=== PATIENT | male | born 1990 | race Asian ===

== ENCOUNTER 2016-11-28 09:43 | Inpatient (IN) | payer OTHER ==
[2016-11-28 10:17] LABS: % IMMATURE GRANULYOCYTES 0.7 % (0.0-1.1); ABSOLUTE IMMATURE GRANULOCYTES 0.03 10^3/uL (0.00-0.10); ADD DIFF? NO; ADD MORPH? NO; ADD SCAN? NO; ATYPICAL LYMPHOCYTE FLAG 10 (0-99); FRAGMENT RBC FLAG 0 (0-99); HEMATOCRIT 44.9 % (40.0-51.0); HEMOGLOBIN 16.2 g/dL (13.7-17.5); LEFT SHIFT FLG 0 (0-99); LIPEMIA HEMOLYSIS FLAG 90 (0-99); MEAN CELL HEMOGLOBIN 31.1 pg (27.9-34.1); MEAN CELL HEMOGLOBIN CONCENTR. 36.1 g/dL (32.4-36.7); MEAN CELL VOLUME 86.2 fL (81.5-99.8); MEAN PLATELET VOLUME 9.4 fL (8.7-11.7); PLATELET CLUMPS FLAG 0 (0-99); PLATELET COUNT 212 10^3/uL (150-400); RED BLOOD CELL COUNT 5.21 10^6/uL (4.40-6.38); RED CELL DISTRIBUTION WIDTH 12.3 % (11.5-15.2)
[2016-11-28 10:29] LABS: ANION GAP 11 mEq/L (8-16); CALCIUM 9.3 mg/dL (8.5-10.4); CARBON DIOXIDE 24 mEq/l (22-31); CHLORIDE 107 mEq/L (97-110); CREATININE 0.9 mg/dL (0.7-1.3); ETHANOL SERUM < 10 mg/dL (0-10); GLOMERULAR FILTRATION RATE > 60; GLUCOSE 103 mg/dL (70-100); POTASSIUM 4.1 mEq/L (3.5-5.2); SODIUM 142 mEq/L (134-144)
--- NOTE | 2016-11-28 13:42 | EDPHY ---
H & P Stated Complaint: manic episode - Personal History Current Tetanus Diphtheria and Acellular Pertussis (TDAP): Yes - Medical/Surgical History Hx Asthma: No Hx Chronic Respiratory Disease: No Hx Diabetes: No Hx Cardiac Disease: No Hx Renal Disease: No Hx Cirrhosis: No Hx Alcoholism: No Hx HIV/AIDS: No Hx Splenectomy or Spleen Trauma: No Other PMH: bipolar - Social History Smoking Status: Never smoked Time Seen by Provider: 11/28/16 11:56 HPI/ROS: CHIEF COMPLAINT: Manic episode HISTORY OF PRESENT ILLNESS: The patient is a 26 year old male sent here by his therapist for possible manic episode. Patient was in [place] over the holidays where he 3 providers secondary to depression. he was told that he has anxiety , and depression by 1 provider and was told that he may have bipolar by another provider. He was placed on Prozac. When he [place] to the [place] earlier this month he was seen at [facility] and told to discontinue his Prozac. The patent saw another therapist here who put him on Zyprexa and Clonazepam. The patient believes those medications have been helping him. He saw his therapist today who thought the patient was having a manic episode. The patient states he feels "twitchy". He reports intermittent auditory and visual hallucinations. At times he feels paranoid as though something were following him. The patient was given medication to help with sleep and thinks he is getting enough sleep. He denies suicidal or homicidal ideation. REVIEW OF SYSTEMS: Aside from elements discussed in the HPI, a comprehensive 10-point review of systems was reviewed and is negative. PAST MEDICAL HISTORY: Depression, Anxiety, Bipolar SOCIAL HISTORY: Non smoker. No drug use. No alcohol use. [employer] student. VITAL SIGNS: Reviewed by me GENERAL: Well-developed, well-nourished, resting comfortably in no respiratory distress. HEENT: Atraumatic. Eyes: No icterus, no injection. Mouth: moist mucous membranes. No erythema or lesions. Neck: supple with no adenopathy. LUNGS: Clear to auscultation bilaterally, no wheezes, rhonchi or rales. CARDIAC: Regular rate and rhythm, no rubs, murmurs or gallops. ABDOMEN: Soft, nontender, nondistended, bowel sounds normal. BACK: No CVA tenderness. EXTREMITIES: No trauma. No edema. Range of motion is normal throughout. NEURO: Alert and oriented, grossly nonfocal. SKIN: Warm and dry, no rash. PSYCHIATRIC: Normal mentation, no agitation. Portions of this note were transcribed by a medical administrative assistant. I personally performed a history, physical exam, medical decision making, and confirmed accuracy of information the transcribed note. (Elizabeth Carr) Constitutional: Initial Vital Signs Temperature (C) 36.5 C 11/28/16 09:43 Heart Rate 90 11/28/16 09:43 Respiratory Rate 20 11/28/16 09:43 Blood Pressure 164/104 H 11/28/16 09:43 O2 Sat (%) 98 11/28/16 09:43 O2 Delivery Mode Room Air Allergies/Adverse Reactions: No Known Allergies Allergy (Unverified 11/28/16 09:57) Home Medications: Medication Instructions Recorded OLANZapine [ZyPREXA 2.5 mg (*)] 5 mg PO DAILY 11/28/16 clonazePAM [Klonopin (*)] 0.5 mg PO DAILY 11/28/16 Medical Decision Making ED Course/Re-evaluation: Care assumed at 3:[address] Carr. Patient is on a mental health hold plan for psychiatric evaluation and hospital admission. 1700: The patient will be transferred to [facility] for inpatient psychiatric hospital bed not available at this facility, in stable condition; accepting physician is Dr. Cheko Tipton. ( Donnell Peterson) 26-year-old male with a recent diagnosis of depression versus anxiety versus bipolar disorder. Patient mostly expresses DIP depressive symptomatology which had been occurring over the holidays, however, today's evaluation he has more manic type complaints with some anxiety, jitteriness, and pressured speech. Patient was medically cleared. His TSH was normal. Urine tox screen was negative. Patient was medically cleared to be evaluated by [facility]. Patient's care was assumed by Dr. Donnell Peterson at 3:15pm. He did ask for a 0.5 mg tablet of clonazepam which was provided. (Elizabeth Carr) Differential Diagnosis: Differential diagnosis of the patient's presenting complaint was considered including but not limited to functional and major depression, situational depression, Hyperthyroidism, medication side effect, drugs and alcohol abuse, bipolar disorder, schizophrenia, schizoaffective disorder. (Elizabeth Carr) - Data Points Laboratory Results: Laboratory Results 11/28/16 10:05 11/28/16 10:05 11/28/16 10:05 WBC 4.60 10^3/uL (3.80-9.50) RBC 5.21 10^6/uL (4.40-6.38) Hgb 16.2 g/dL (13.7-17.5) Hct 44.9 % (40.0-51.0) MCV 86.2 fL (81.5-99.8) MCH 31.1 pg (27.9-34.1) MCHC 36.1 g/dL (32.4-36.7) RDW 12.3 % (11.5-15.2) Plt Count 212 10^3/uL (150-400) MPV 9.4 fL (8.7-11.7) Neut % (Auto) 54.5 % (39.3-74.2) Lymph % (Auto) 29.8 % (15.0-45.0) Quay % (Auto) 10.0 % (4.5-13.0) Eos % (Auto) 4.1 % (0.6-7.6) Baso % (Auto) 0.9 % (0.3-1.7) Nucleat RBC Rel Count 0.0 % (0.0-0.2) Absolute Neuts (auto) 2.51 10^3/uL (1.70-6.50) Absolute Lymphs (auto) 1.37 10^3/uL (1.00-3.00) Absolute Monos (auto) 0.46 10^3/uL (0.30-0.80) Absolute Eos (auto) 0.19 10^3/uL (0.03-0.40) Absolute Basos (auto) 0.04 10^3/uL (0.02-0.10) Absolute Nucleated RBC 0.00 10^3/uL (0-0.01) Immature Gran % 0.7 % (0.0-1.1) Immature Gran # 0.03 10^3/uL (0.00-0.10) Sodium 142 mEq/L (134-144) Potassium 4.1 mEq/L (3.5-5.2) Chloride 107 mEq/L (97-110) Carbon Dioxide 24 mEq/l (22-31) Anion Gap 11 mEq/L (8-16) BUN 12 mg/dL (7-23) Creatinine 0.9 mg/dL (0.7-1.3) Estimated GFR > 60 Glucose 103 H mg/dL (70-100) Calcium 9.3 mg/dL (8.5-10.4) TSH 1.390 uIU/mL (0.465-4.680) Urine Opiates Screen NEGATIVE (NEGATIVE) Urine Barbiturates NEGATIVE (NEGATIVE) Ur Phencyclidine Scrn NEGATIVE (NEGATIVE) Ur Amphetamine Screen NEGATIVE (NEGATIVE) U Benzodiazepines Scrn NEGATIVE (NEGATIVE) Urine Cocaine Screen NEGATIVE (NEGATIVE) U Marijuana (THC) Screen NEGATIVE (NEGATIVE) Ethyl Alcohol < 10 mg/dL (0-10) Medications Given: Discontinued Medications Clonazepam (Klonopin) 0.25 mg PO EDNOW ONE Stop: 11/28/16 16:02 Last Admin: 11/28/16 16:11 Dose: 0.25 mg Departure - Departure Disposition: [facility] IP Clinical Impression: Bipolar disease, manic Condition: Good Referrals: Patient,NotPresent [Unknown] - As per Instructions Report Scribed for: Elizabeth Carr Report Scribed by: Daniela Moe Date of Report: 11/28/16 Time of Report: 13:42
[2016-11-28] MEDS ORDERED: clonazePAM 0.5 MG TAB PO ONE (16:01)
[2016-11-28] MEDS ORDERED: NICOTINE POLACRILEX 2 MG GUM B PRN (18:43)
[2016-11-28] MEDS ORDERED: ACETAMINOPHEN 325 MG TAB PO PRN (18:43)
[2016-11-28] MEDS ORDERED: MAG HYDROX/AL HYDROX/SIMETH 30 ML UDCUP PO PRN (18:43)
[2016-11-28] MEDS ORDERED: MAGNESIUM HYDROXIDE 30 ML UDCUP PO PRN (18:43)
[2016-11-28] MEDS ORDERED: OLANZapine DISINTEGR 10 MG TAB PO PRN (18:43)
[2016-11-28] MEDS: LORazepam 0.5 MG TAB PO PRN (19:12)
[2016-11-28] MEDS: OLANZapine DISINTEGR 10 MG TAB PO SCH (20:53)
[2016-11-29 06:27] VITALS: RESP 16
[2016-11-29] MEDS: lamoTRIgine 25 MG TAB PO SCH (09:29)
[2016-11-29] MEDS: LORazepam 0.5 MG TAB PO PRN ×2 (09:30→11:30)
--- NOTE | 2016-11-29 15:03 | BAPA ---
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 He was transferred from the [facility] after presenting there for a scheduled followup appointment and exhibiting manic symptoms. He reports several-year history of notable depressive episodes and even some possible hypomanic episodes but not having previously sought care. He states that this Hunter when he was home in [place] that he felt particularly depressed and sought treatment with 3 psychiatrists in [place]. He states that 1 psychiatrist thought he might be bipolar, another believed it was primarily anxiety, and the third believed that it was depression. The patient states that he went with recommendations of the person believing it was depression because he believed that this would be a more treatable condition and agreed to a trial of Prozac. The Prozac was started at 10 mg daily and he states that he initially tolerated it fine. When he returned to the [employer] [facility] [employer] approximately 3 weeks ago, he presented to the clinic for followup and saw the PA. The PA then increased the Prozac from 20 to 40 mg and he states that he began experiencing manic symptoms. He states he was having trouble sleeping, was experiencing increased thought production "faster than I could say them." He also noted voluminous speech and increased energy. He states that he had some changes in behavior including recently spending over 600 dollars on essentially frivolous items, including a new cell phone and various housewares. He was being followed by Dr. Sreedhar Mike at the [facility], who placed him on Zyprexa and then most recently Lamictal and stopped the Prozac. He was, however, apparently worsening and Dr. Mike referred him to the emergency department. Patient states that he was willing to come to the emergency department but believes that he may be improving and may not need to stay in the hospital. For this reason, he was placed on an M1 hold due to grave disability and admitted to behavioral health services inpatient unit. PAST PSYCHIATRIC HISTORY: Significant for the events as described above. He has had no previous medication treatments prior to the Prozac in October of 2016. He has had no previous psychiatric hospitalizations. He reports 3 episodes of notable depression in college but did not have medication treatment. He states that the manic symptoms would often follow the depressive episodes though they were not as severe as his current issues. He has no history of suicide attempts. ALLERGIES: No known medical allergies. CURRENT MEDICATIONS: Zyprexa 5 mg daily, Lamictal 25 mg daily, clonazepam 0.25 mg in the morning and 0.5 mg at night. PAST MEDICAL HISTORY: Noncontributory. No history of central nervous system disease. SOCIAL HISTORY: Patient was born and raised in [place]. He states that he was raised primarily by his maternal grandfather. He states that his parents were but his father was a business person and in the [place] tradition was out of the home for 16-18 hours a day. The patient states that his maternal grandmother was severely depressed and has been in bed for over 10 years. He states his mother also suffered from depression and that he was raised primarily by his maternal grandfather. He states that his mother "found synagogue" and this helped her get over her depression and she returned to a parenting role when the patient was 9. 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 He states that he has been having trouble with this due to his depression and was hoping that the medication would help him be more successful. He lives in an apartment off campus with a roommate with whom he states he has a good relationship. He states he has a good group of friends primarily through his contacts at the university though no current intimate relationships. SUBSTANCE ABUSE HISTORY: Patient states he drinks alcohol moderately and occasionally. Denies any marijuana, tobacco or other drug use. ADMISSION LABORATORY: CBC is normal. Serum chemistries are normal. TSH is normal. Urine drug screen is negative for all substances. Alcohol is less than detectable. MENTAL STATUS EXAMINATION: Reveals a well groomed, casually but appropriately dressed male. He appears somewhat nervous and displays at least a moderate level of psychomotor agitation, fidgeting in his seat and frequently making nervous gestures with his hands to adjust his glasses or his shirt. He participates actively in the interview maintaining good eye contact and normal social interactions. His affect is somewhat constricted and anxious, though appropriate and stable. His mood is described as "a little messed up." His thought process is linear and goal directed. His thought content reveals no evidence of psychosis. He is alert and oriented to person, place, time, and situation and his sensorium is clear. He denies any thoughts of suicide, homicide or violence. His intellect appears to be above average as evidenced by his academic history, fund of knowledge and vocabulary. He is completely fluent in Israeli and there is no difficulties in communication or understanding. His insight and judgment appear to be good. IMPRESSION: Bipolar type 1, most recent episode mixed, severe, without psychosis, academic stress, marginal supports. The patient is a pleasant 26-year-old male who presents at this time with evidence of mixed katlin. He has had at least 3 index episodes of major depression in the past with some hypomania and it appears that the treatment with fluoxetine may have put him over the edge into more rudy katlin. Despite this, he retains a mixed nature with a depressed mood. Dr. Mike has intervened appropriately and started him on Zyprexa and Lamictal, which we have continued. I will increase the Zyprexa initially to 10 mg and consider 15 prior to returning to the outpatient setting. Lamictal will be continued on a standard titration. I left a message for Dr. Mike and will collaborate with him prior to considering discharge. Estimated length of stay is 3-5 days. /[id number]/MODL MTDD
[2016-11-29] MEDS: OLANZapine DISINTEGR 10 MG TAB PO SCH (18:56)
--- NOTE | 2016-11-30 05:01 | BCON ---
[f rep st] BEHAVIORAL HEALTH CONSULTATION INTERNAL MEDICINE CONSULTATION. DATE OF CONSULTATION: 11/29/2016 REFERRING PHYSICIAN: Cheko Tipton MD REASON FOR CONSULTATION: Medical clearance for inpatient behavioral health stay. HISTORY OF PRESENT ILLNESS: Mr. Summers had a manic episode, likely triggered by prescription of Prozac, while he was in [place] over the Holiday. He was seen at the [facility] on campus. Prozac was discontinued and he was begun on olanzapine and clonazepam, and then on lamotrigine; however, he was continuing to be manic, and so was sent to the emergency department. There , he was placed on an M1 hold and admitted for further psychiatric care. He currently is without any medical complaints. PAST MEDICAL HISTORY: 1. Depression and recent diagnosis of bipolar disorder. 2. Appendicitis. PAST SURGICAL HISTORY: Appendectomy. MEDICATIONS: 1. Lamotrigine. 2. Clonazepam. 3. Olanzapine. ALLERGIES: There are no known drug allergies. 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 He is a nonsmoker. He uses alcohol occasionally. He does not use marijuana or other substances of abuse. He lives with a roommate. FAMILY HISTORY: There is a history of depression in his mother and in his grandmother. REVIEW OF SYSTEMS: He denies fevers, chills, weight gain or weight loss, cough , dyspnea, chest pain, palpitations, nausea, vomiting, constipation, diarrhea, and otherwise a 10-point review of systems is negative. PHYSICAL EXAM: VITALS: Blood pressure at 6 o'clock this morning was 129/84, heart rate was 71, respiratory rate was 16, oxygen saturation was 96% on room air, temperature is 36.6 degrees centigrade. His weight is recorded as 104 kg for a body mass index of 30.2; however, he does not appear to be obese. Of note , his blood pressure was 164/104 when he was first assessed in the emergency department yesterday morning. GENERAL: This is a well-nourished, well- developed, overweight-appearing man, who appears his chronologic age, cooperative, and in no acute distress. HEENT: Extraocular movements are intact. Pupils are equal, round, and reactive to light, and accommodation. Mucous membranes are moist. Dentition is in good condition. He has a somewhat crowded airway with Mallampati class 3. NECK: Supple. HEART: Regular rate and rhythm with no murmurs, rubs, or gallops. LUNGS: Clear to auscultation bilaterally. ABDOMEN: Soft, nontender, nondistended with normoactive bowel sounds. EXTREMITIES: There is no cyanosis, clubbing, or edema. NEUROLOGIC: He is alert and oriented x3. Cranial nerves 2-12 are grossly intact. There is no focal weakness. Sensation is intact to light touch. LABORATORY STUDIES: Drawn in the emergency department. CBC was entirely within normal limits. Serum chemistry revealed a slightly elevated glucose at 103, but this was likely nonfasting. Otherwise, renal function and electrolytes were within normal limits. TSH was normal at 1.39. Serum toxicology was negative for ethyl alcohol and urine toxicology was negative for any substances of abuse. ASSESSMENT AND RECOMMENDATIONS: 1. Mental health condition. Pending further evaluation and management per Psychiatry and the mental health team. 2. Overweight. Question whether he is truly obese. Consider repeating his height and weight to verify. Would exercise some caution regarding medications which could further weight gain. He could be counseled about exercise and diet. Psychosocial stabilization is the first priority for him at present. His elevated blood pressures are concerning, given his overweight status; however, these issues can be followed by his primary care physician after his discharge. I see no medical contraindications to Mr. Summers's continued stay on the inpatient behavioral health unit, or to any psychiatric medications or procedures. Thank you very much for including me in the care of Mr. Summers, and please do not hesitate to contact me or the hospitalist service should there be need for further medical evaluation. /[id number]/MODL MTDD
[2016-11-30] MEDS: lamoTRIgine 25 MG TAB PO SCH (07:45)
[2016-11-30] MEDS: LORazepam 0.5 MG TAB PO PRN ×3 (07:45→19:51)
[2016-11-30] MEDS ORDERED: FLU VACC QS 2016-17(3-64YR)/PF 0.5 ML SYR (FLUARIX QUAD) IM ONE (11:23)
--- NOTE | 2016-11-30 13:33 | SOAPPROG ---
[facility] Progress Note Assessment/Plan: Assessment: Plan: 11/30/16 13:33 Improving. CCM. Plan is to continue current management. If all is well tomorrow, will d/c pt at the expiration of his hold. he will return to normal duties on Monday and see Dr. Mike on Monday. Subjective: Pt seen, discussed with staff. Reports feeling "a lot better" today. I spoke with pt alone and with Dr. Mike via telephone conference. He is in agreement with current plan. He would prefer using Klonopin to Ativan. Pt is more organized. Able to participate in groups well. Mood is brighter, less anxious. Staff notes continued pressured speech and accelerated thoughts at times. Compliant with meds. Slept 10 hours last night. Objective: Vital Signs Temp Pulse Resp BP Pulse Ox 36.6 C 76 16 135/81 H 95 11/30/16 06:00 11/30/16 06:00 11/30/16 06:00 11/30/16 06:00 11/30/16 06:00 - Time Spent With Patient Time Spent With Patient: 25" - Pending Discharge Pending Discharge Within 24 Hours: Yes Pending Discharge Date: 12/01/16 Pending Discharge Time: 11:00 ICD10 Worksheet Patient Problems: Problems Problem Status Diagnosed Bipolar disease, manic Acute
[2016-11-30] MEDS: OLANZapine DISINTEGR 10 MG TAB PO SCH (19:51)
[2016-12-01 06:21] VITALS: BP 130/79; PULSE 114; TEMP 98; O2SAT 97
[2016-12-01] MEDS: lamoTRIgine 25 MG TAB PO SCH (08:24)
[2016-12-01] MEDS: LORazepam 0.5 MG TAB PO PRN (08:24)
== END 2016-12-01 10:35 | disposition home or self-care (01) | DRG 885 ==
LOC: BBEH 18:00
PROVIDERS: ADMIT Psychiatry & Neurology Psychiatry; ATTEND Psychiatry & Neurology Psychiatry
DX: F31.63 Bipolar disorder, current episode mixed, severe, without psychotic features (principal); E66.3 Overweight
CPT/HCPCS: 80305; G0008; G0480

== ENCOUNTER 2017-03-08 10:42 | Inpatient (IN) | payer OTHER ==
--- NOTE | 2017-03-08 11:00 | EDPHY ---
HPI/HX/ROS/PE/MDM Narrative: CHIEF COMPLAINT: Overdose HPI: The patient is a 26-year-old male brought in for overdose. The patient has a history of bipolar disorder. He admits to taking 15 tablets of 0.5mg of Clonazepam 30 minutes prior to arrival. The patient states he took the medication "as a bet with myself". If he in 1 hour then he won, if not he lost. The patient did not take his Lamictal and Wabeno this morning. The patient denies chest pain, shortness of breath, or abdominal pain. REVIEW OF SYSTEMS: Aside from elements discussed in the HPI, a comprehensive 10-point review of systems was reviewed and is negative. PMH: Bipolar with manic tendencies. 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 PHYSICAL EXAM: General: Patient is alert, in no acute distress. ENT: Eyes are normal to inspection. ENT inspection normal. Neck: Normal inspection. Full range of motion. Respiratory: No respiratory distress. Breath sounds normal bilaterally. Cardiovascular: Regular rate and rhythm. Strong peripheral pulses. Abdomen: The abdomen is nontender to palpation. There are no peritoneal signs. There are normal bowel sounds. Back: Normal to inspection. No tenderness to palpation. Skin: Normal color. No rash. Warm and dry. Extremities: Normal appearance. Full range of motion. Neuro: Oriented x3. Normal motor function. Normal sensory function. ED Course: The patient presents with intentional overdose. He took 15 tablets of 0.5mg Clonazepam 30 minutes prior to arrival. Patient took the medication as a bet with himself. He states he wanted the medication to kill him so he would win the bet. The patient has a history of bipolar disorder with manic tendencies. He did not take his Lamictal or Wabeno this morning. I placed the patient on a detainer. I ordered CBC, BMP, and drug screen. EKG was ordered and interpreted by myself. Please see Edifilm system for official reading. Sinus rhythm. 2:00 p.m.: I reevaluated the patient. He is sleeping comfortably. Vital signs are normal. Patient will be admitted to [address] [place] [address] after 3p.m. - Data Points Laboratory Results: Laboratory Results 03/08/17 10:56 03/08/17 10:56 03/08/17 03/08/17 03/08/17 13:00 10:56 10:56 WBC 4.90 10^3/uL 10^3/uL (3.80-9.50) RBC 5.48 10^6/uL 10^6/uL (4.40-6.38) Hgb 16.6 g/dL g/dL (13.7-17.5) Hct 47.1 % % (40.0-51.0) MCV 85.9 fL fL (81.5-99.8) MCH 30.3 pg pg (27.9-34.1) MCHC 35.2 g/dL g/dL (32.4-36.7) RDW 12.3 % % (11.5-15.2) Plt Count 223 10^3/uL 10^3/uL (150-400) MPV 9.2 fL fL (8.7-11.7) Neut % (Auto) 67.5 % % (39.3-74.2) Lymph % (Auto) 21.2 % % (15.0-45.0) Dupage % (Auto) 7.6 % % (4.5-13.0) Eos % (Auto) 2.7 % % (0.6-7.6) Baso % (Auto) 0.6 % % (0.3-1.7) Nucleat RBC Rel Count 0.0 % % (0.0-0.2) Absolute Neuts (auto) 3.31 10^3/uL 10^3/uL (1.70-6.50) Absolute Lymphs (auto) 1.04 10^3/uL 10^3/uL (1.00-3.00) Absolute Monos (auto) 0.37 10^3/uL 10^3/uL (0.30-0.80) Absolute Eos (auto) 0.13 10^3/uL 10^3/uL (0.03-0.40) Absolute Basos (auto) 0.03 10^3/uL 10^3/uL (0.02-0.10) Absolute Nucleated RBC 0.00 10^3/uL 10^3/uL (0-0.01) Immature Gran % 0.4 % % (0.0-1.1) Immature Gran # 0.02 10^3/uL 10^3/uL (0.00-0.10) Sodium 143 mEq/L mEq/L (134-144) Potassium 4.2 mEq/L mEq/L (3.5-5.2) Chloride 110 mEq/L mEq/L (97-110) Carbon Dioxide 21 mEq/l L mEq/l (22-31) Anion Gap 12 mEq/L mEq/L (8-16) BUN 12 mg/dL mg/dL (7-23) Creatinine 0.9 mg/dL mg/dL (0.7-1.3) Estimated GFR > 60 Glucose 117 mg/dL H mg/dL (70-100) Calcium 9.7 mg/dL mg/dL (8.5-10.4) Urine Opiates Screen NEGATIVE (NEGATIVE) Urine Barbiturates NEGATIVE (NEGATIVE) Ur Phencyclidine Scrn NEGATIVE (NEGATIVE) Ur Amphetamine Screen NEGATIVE (NEGATIVE) U Benzodiazepines Scrn NEGATIVE (NEGATIVE) Urine Cocaine Screen NEGATIVE (NEGATIVE) U Marijuana (THC) Screen NEGATIVE (NEGATIVE) Ethyl Alcohol < 10 mg/dL mg/dL (0-10) General Time Seen by Provider: 03/08/17 10:49 Initial Vital Signs: Initial Vital Signs Temperature (C) 36.6 C 03/08/17 10:45 Heart Rate 98 03/08/17 10:45 Respiratory Rate 20 03/08/17 10:45 Blood Pressure 135/74 H 03/08/17 10:45 O2 Sat (%) 94 03/08/17 10:45 O2 Delivery Mode Nasal Cannula O2 (L/minute) 2 Allergies/Adverse Reactions: No Known Allergies Allergy (Verified 03/08/17 10:43) Home Medications: Medication Instructions Recorded Brexpiprazole [Rexulti 1 MG (*)] 1 mg PO HS 03/08/17 Wabeno Carbonate [Wabeno 300 mg PO DAILY 03/08/17 Carbonate Cap 300 mg (*)] Wabeno Carbonate [Wabeno 600 mg PO DAILY@20 03/08/17 Carbonate Cap 300 mg (*)] OLANZapine [Zyprexa] 15 mg PO HS 03/08/17 clonazePAM [Klonopin (*)] 0.5 mg PO DAILY PRN 03/08/17 lamoTRIgine [Lamictal] 150 mg PO DAILY 03/08/17 Departure - Departure Disposition: [facility] IP Clinical Impression: Suicidal ideation Overdose Qualifiers: Encounter type: initial encounter Injury intent: intentional self-harm Qualified Code(s): T50.902A - Poisoning by unspecified drugs, medicaments and biological substances, intentional self-harm, initial encounter Condition: Good Referrals: NONE *PRIMARY CARE P,. [Primary Care Provider] - As per Instructions Report Scribed for: Javan Lopes Report Scribed by: Daniela Moe Date of Report: 03/08/17 Time of Report: 11:05 Physician Review and Approval Statement: Portions of this note were transcribed by a medical interpreter. I personally performed the history, physical exam, and medical decision-making; and confirmed the accuracy of the information in the transcribed note.
--- NOTE | 2017-03-08 11:00 | CPEKG ---
Heart Rate: 94 RR Interval: 638 P-R Interval: 164 QRSD Interval: 98 QT Interval: 360 QTC Interval: 451 P Steptoe: 68 QRS Steptoe: 57 T Wave Steptoe: 9 EKG Severity - NORMAL ECG - EKG Impression: SINUS RHYTHM Electronically Signed By: Javan Lopes 08-Mar-2017 15:09:35
[2017-03-08 11:06] LABS: % IMMATURE GRANULYOCYTES 0.4 % (0.0-1.1); ABSOLUTE IMMATURE GRANULOCYTES 0.02 10^3/uL (0.00-0.10); ADD DIFF? NO; ADD MORPH? NO; ADD SCAN? NO; ATYPICAL LYMPHOCYTE FLAG 0 (0-99); FRAGMENT RBC FLAG 0 (0-99); HEMATOCRIT 47.1 % (40.0-51.0); HEMOGLOBIN 16.6 g/dL (13.7-17.5); LEFT SHIFT FLG 0 (0-99); LIPEMIA HEMOLYSIS FLAG 90 (0-99); MEAN CELL HEMOGLOBIN 30.3 pg (27.9-34.1); MEAN CELL HEMOGLOBIN CONCENTR. 35.2 g/dL (32.4-36.7); MEAN CELL VOLUME 85.9 fL (81.5-99.8); MEAN PLATELET VOLUME 9.2 fL (8.7-11.7); PLATELET CLUMPS FLAG 10 (0-99); PLATELET COUNT 223 10^3/uL (150-400); RED BLOOD CELL COUNT 5.48 10^6/uL (4.40-6.38); RED CELL DISTRIBUTION WIDTH 12.3 % (11.5-15.2)
[2017-03-08 11:22] LABS: ANION GAP 12 mEq/L (8-16); CALCIUM 9.7 mg/dL (8.5-10.4); CARBON DIOXIDE 21 mEq/l (22-31); CHLORIDE 110 mEq/L (97-110); CREATININE 0.9 mg/dL (0.7-1.3); ETHANOL SERUM < 10 mg/dL (0-10); GLOMERULAR FILTRATION RATE > 60; GLUCOSE 117 mg/dL (70-100); POTASSIUM 4.2 mEq/L (3.5-5.2); SODIUM 143 mEq/L (134-144)
[2017-03-08] MEDS ORDERED: ACETAMINOPHEN 325 MG TAB PO PRN (18:32)
[2017-03-08] MEDS ORDERED: LORazepam 0.5 MG TAB PO PRN (18:32)
[2017-03-08] MEDS ORDERED: MAG HYDROX/AL HYDROX/SIMETH 30 ML UDCUP PO PRN (18:33)
[2017-03-08] MEDS ORDERED: MAGNESIUM HYDROXIDE 30 ML UDCUP PO PRN (18:33)
[2017-03-08] MEDS ORDERED: OLANZapine 5 MG TAB PO SCH (21:00)
[2017-03-08] MEDS: LITHIUM CARBONATE 300 MG TAB PO SCH (21:14)
[2017-03-09] MEDS: lamoTRIgine 100 MG TAB PO SCH (08:15)
[2017-03-09] MEDS: LITHIUM CARBONATE 300 MG TAB PO SCH ×2 (08:15→20:29)
--- NOTE | 2017-03-09 16:27 | BCON ---
[f rep st] BEHAVIORAL HEALTH CONSULTATION INTERNAL MEDICINE CONSULTATION DATE OF CONSULTATION: 03/09/2017 REFERRING PHYSICIAN: Nadeen Eaton MD REASON FOR REFERRAL: Medical clearance for inpatient behavioral health stay. HISTORY OF PRESENT ILLNESS: The patient presented yesterday to the [facility] emergency department, having reportedly taken fifteen 0.5 mg clonazepam tablets. He was placed on oxygen and evaluated and found to be stable. He was evaluated by the mental health team and admitted for further psychiatric care. Currently, he complains of feeling fatigued. Otherwise, he is without any acute medical complaints. PAST MEDICAL HISTORY: 1. Bipolar disorder. 2. History of appendicitis. PAST SURGICAL HISTORY: History of appendectomy. MEDICATIONS: Prior to admission, he was prescribed: 1. [place] 300 mg p.o. daily in the morning and 600 mg p.o. daily in the evening. 2. Brexpiprazole 1 mg p.o. q.h.s. 3. Lamotrigine 150 mg p.o. daily. 4. Clonazepam 0.5 mg p.o. daily p.r.n. 5. Olanzapine 15 mg p.o. q.h.s. ALLERGIES: There are no known drug allergies. 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 He lives in an apartment with a roommate. He is a nonsmoker and nondrinker. FAMILY HISTORY: Noncontributory. REVIEW OF SYSTEMS: Other than fatigue, a 10-point review of systems was conducted and was negative. PHYSICAL EXAM: VITAL SIGNS: Blood pressure is 118/78, heart rate is 70, respiratory rate is 14, oxygen saturation is 95% on room air. Temperature is 36.4 degrees centigrade. His weight is 105 kg for a body mass index of 30.5. GENERAL: This is a large man, does not appear obese, napping in the afternoon in bed, easily awakened, cooperative, and in no acute distress. HEENT: Extraocular movements are intact. Pupils are equal, round, and reactive to light. Mucous membranes are moist. Dentition is in good condition. He has non crowded airway. There is no posterior oropharyngeal mucus. There are no oropharyngeal mucosal lesions noted. NECK: Supple. HEART: There is a regular rate and rhythm with no murmurs, rubs, or gallops. LUNGS: Clear to auscultation bilaterally. ABDOMEN: Soft, nontender, nondistended with normoactive bowel sounds. EXTREMITIES: There is no cyanosis, clubbing, or edema. NEUROLOGIC: He is alert and oriented x3. Cranial nerves 2-12 are grossly intact. There is no focal weakness. Sensation is intact to light touch. Gait is within normal limits. Romberg exam is positive with loss of balance when he closes his eyes. LABORATORY STUDIES: Drawn in the emergency department. CBC was entirely within normal limits. Serum chemistry revealed a low carbon dioxide at 21, a high glucose at 117, though this was likely not fasting. Otherwise, renal function and electrolytes were within the normal limits. Toxicology screen in the serum was negative for ethyl alcohol, and the urine was negative for any substances of abuse, including negative for benzodiazepines. ASSESSMENT AND RECOMMENDATIONS: 1. Mental health issues, pending further evaluation and management per Psychiatry and the mental health team. 2. Reported benzodiazepine overdose discussed with the lab. It is possible that the [facility] urine toxicology screen does not detect 7 amino clonazepam, which is the metabolite found in the urine. The clonazepam ingestion could be confirmed by a send-out blood test. I leave this to the discretion of Psychiatry whether this is worthwhile. His physical exam, in terms of effects of benzodiazepines, is overall within normal limits, though he does have a positive Romberg, which would not be expected in an otherwise healthy 26-year-old, so this could be due to balance impairment from the benzodiazepine. I see no medical contraindications to the patient's continued stay on the inpatient behavioral health unit. Thank you very much for including me in the care of this patient, and please do not hesitate to contact me or the hospitalist service should there be need for further medical evaluation. /[id number]/MODL MTDD
--- NOTE | 2017-03-09 16:36 | BAPA ---
[f rep st] ADMISSION PSYCHIATRIC ASSESSMENT DATE OF SERVICE: 03/09/2017 CHIEF COMPLAINT: "I was feeling impulsive and took a whole bottle of Klonopin." HISTORY OF PRESENT ILLNESS: Patient is a 26-year-old Khmer male who presented to the emergency dep artment after his roommate called the police. He apparently had been in some form of a rather odd i nteraction with the roommate, stating that he essentially was "going to bet him I could take these p ills." He then proceeded to take what was left in the bottle of clonazepam, which he believed to be fifteen 0.5 mg tablets. The patient states that he had been feeling depressed over the last month and that this was increasing, but he was having frequent thoughts of self-harm and suicide. He stat es, however, that he did not necessarily plan this act, though does admit to having written a number of letters to his parents "to say goodbye." He reports that his roommate became concerned after he actually took the pills and did a shot of vodka "because that would make it more lethal." He came quietly to the emergency department with the squad after the police were called. In the ER, he cont inues to endorse this somewhat odd story, and then today tells me that he has been having the persis tent thoughts of suicide. He also states that he has been feeling more depressed, with a pervasivel y depressed mood and is having trouble sleeping. He feels agitated quite a bit and has had trouble sitting still. 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 He states he feels agitated a lot, rest less, and struggles to sit still while studying. He complains of poor attention and concentration, racing thoughts, and impulsivity. He states that his mood has been lower than usual, and he has had thoughts of worthlessness, "Like I was letting people down, especially in my research." He states he has missed several deadlines with his PhD project, and he feels that he is letting down his co-in vestigators. He has been socializing minimally outside of his roommate and states he feels isolated and lonely. PAST PSYCHIATRIC HISTORY: Significant for some previous treatment in [place]. He had been given anti depressants by a primary care physician when he was home in [place], including Prozac in October 2016 . He states that he then had some manic symptoms and discontinued the Prozac. He states at least 4 previous episodes of depression prior to now and was hospitalized at this facility from 11/28/2016 to 12/01/2016 due to a mixed katlin. He denies any previous suicide attempts, though states he has h ad persistent thoughts. He has been followed by Dr. Sreedhar Mike at the [facility] at the [employer]. His meds have been relatively stable, though they are apparently switching over from Zyprexa to Rexulti. The patient notes no side effects from his medicines, though states t hat he is not sure they are effective. ALLERGIES: No known medical allergies. CURRENT MEDICATIONS: Rexulti 1 mg h.s., Lamictal 150 mg daily, lithium carbonate 300 mg daily and 6 00 mg h.s., and Zyprexa 15 mg h.s. PAST MEDICAL HISTORY: Unremarkable. SOCIAL HISTORY: Patient is from [facility]. He is currently living in an apartment with 1 roommate. 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 He has been collecting some data and is supposed to be compiling this for publication, though states he has been behind on this. His suppo rts are his family in [place], though he does not communicate with them if he is feeling badly because he does not want to be ashamed. He notes no other stresses at this time. SUBSTANCE ABUSE HISTORY: Patient states that he does drink occasionally, though this has been less recently. He denies any other marijuana or drug use. ADMISSION LABORATORY: CBC is normal. Serum chemistries show a nonfasting glucose of 117, otherwise normal. Urine drug screen is negative for all substances, and alcohol is less than detectable. MENTAL STATUS EXAMINATION: Reveals an adequately groomed, healthy-appearing male. He is plea faith and cooperative, though does demonstrate at least a moderate level of psychomotor retardation. His affect is blunted, stable and appropriate. His mood is described as "pretty good now." His th ought process is linear and goal directed. His thought content reveals no evidence of psychosis, th ough there is some notable delay in answering some questions. He does not seem to be attending to i nternal stimuli and does not endorse auditory hallucinations. He is alert and oriented to person, p lace, time, and situation. There is no evidence of delirium or intoxication. His intellect appears to be above average as evidenced by his academic history, fund of knowledge, and vocabulary. He do es not currently endorse thoughts of suicide, stating "that has gone away." His insight and judgmen t appear to be fair. IMPRESSION: Bipolar type 1 disorder, most recent episode depressed, moderate to severe, without psy chosis. Academic stress, marginal supports, chronic illness. The patient is a pleasant 26-year-old male who presents at this time due to recurrent suicidal ideation in the setting of depression or mixed episode. He seemed pretty serious actually about ta tatiana these pills and mixing with alcohol, and his affect is somewhat incongruent for this as he does not seem to have an emotional response, positive or negative, though did make numerous statements i n the emergency department that it would be a failure if he lived. He also wrote notes to his maurilio ts, which is obviously concerning as well. He wants to leave the hospital to return to his apartmen t where he states he is more comfortable, and to return to his academic duties. I reviewed with him my impressions of his current regimen, and he is agreeable to increasing the Rexulti to 2 mg and de creasing the Zyprexa from 15 to 10 mg. I have a message in for Dr. Mike and hope to hear from him s oon in regard to any guidance he may have pharmacologically or otherwise. Estimated length of stay is 3-5 days. /[id number]/MODL
[2017-03-09] MEDS: BREXPIPRAZOLE 2 MG TAB PO SCH (20:29)
[2017-03-09] MEDS: OLANZapine 10 MG TAB PO SCH (20:29)
[2017-03-09] MEDS ORDERED: BREXPIPRAZOLE 1 MG TAB PO SCH (21:00)
[2017-03-09] MEDS ORDERED: OLANZapine 10 MG TAB PO SCH (21:00)
[2017-03-10] MEDS: LITHIUM CARBONATE 300 MG TAB PO SCH ×2 (08:59→20:25)
[2017-03-10] MEDS: lamoTRIgine 100 MG TAB PO SCH (08:59)
--- NOTE | 2017-03-10 12:57 | SOAPPROG ---
SOAP Progress Note Assessment/Plan: Assessment: Plan: 03/10/17 12:57 Appears brighter today. Insight remains poor. Difficult to assess overall lethality at this point. Hope to hear from Dr. Mike today. Subjective: Pt seen, discussed with staff. Reports feeling "a lot better." States he wants to leave tomorrow. Remains concrete, fairly superficial. States he is no longer suicidal but admits to having persistent thoughts of suicide for several weeks to a month prior to recent OD. I left a message for Dr. Mike. Tolerating increase in Rexulti well. Objective: Vital Signs Temp Pulse Resp BP Pulse Ox 36.6 C 90 14 114/74 94 03/10/17 06:00 03/10/17 06:00 03/10/17 06:00 03/10/17 06:00 03/10/17 06:00 MSE: Calm, coop. Affect is brighter, stable. Mood is "better." TP linear. TC reveals no psychosis. Denies current SI. - Time Spent With Patient Time Spent With Patient: 25" ICD10 Worksheet Patient Problems: Problems Problem Status Onset Overdose Acute Suicidal ideation Acute Bipolar disease, manic Acute
[2017-03-10] MEDS: BREXPIPRAZOLE 2 MG TAB PO SCH (20:25)
[2017-03-10] MEDS: OLANZapine 10 MG TAB PO SCH (20:25)
[2017-03-11] MEDS: LITHIUM CARBONATE 300 MG TAB PO SCH ×2 (08:10→20:33)
[2017-03-11] MEDS: lamoTRIgine 100 MG TAB PO SCH ×2 (08:10→10:10)
[2017-03-11] MEDS ORDERED: OLANZapine DISINTEGR 10 MG TAB PO PRN (08:43)
--- NOTE | 2017-03-11 12:18 | SOAPPROG ---
SOAP Progress Note Assessment/Plan: Assessment: Plan: 03/10/17 12:57 Appears brighter today. Insight remains poor. Difficult to assess overall lethality at this point. Hope to hear from Dr. Mike today. 03/11/17 12:17 Improved overall. Will institute med changes per discussion with Dr. Mike and monitor. Will reassess tomorrow in regards to appropriateness for d/c. Dr. Mike can see him on Monday when he returns from vacation. Subjective: Pt seen, discussed with staff. Reports feeling "OK, but sleepy" today. Sleeping in his room when I enter at 1130. Medication changes ordered this morning. I reviewed with him the plan from Dr. Mike including staying for at least one more day due to med changes. He is agreeable to this as well as converting to a voluntary status. Objective: Vital Signs Temp Pulse Resp BP Pulse Ox 37.1 C 79 12 116/73 95 03/11/17 06:00 03/11/17 06:00 03/11/17 06:00 03/11/17 06:00 03/11/17 06:00 MSE: Calm, coop. Does appear sleepy. Affect is blunted, stable. Mood is "OK. " TP linear. TC reveals no overt psychosis. Denies current SI. - Time Spent With Patient Time Spent With Patient: 15" ICD10 Worksheet Patient Problems: Problems Problem Status Onset Overdose Acute Suicidal ideation Acute Bipolar disease, manic Acute
[2017-03-11] MEDS ORDERED: metFORMIN HCL 500 MG TAB PO SCH (18:00)
[2017-03-11] MEDS: OLANZapine DISINTEGR 10 MG TAB PO SCH (20:30)
[2017-03-11] MEDS: BREXPIPRAZOLE 3 MG TAB PO SCH (20:33)
[2017-03-11] MEDS: BREXPIPRAZOLE 2 MG TAB PO SCH (20:33)
[2017-03-11] MEDS ORDERED: SERTRALINE HCL 50 MG TAB PO SCH (21:00)
[2017-03-11] MEDS ORDERED: OLANZapine DISINTEGR 10 MG TAB PO SCH ×2 (21:00)
[2017-03-12 06:20] VITALS: TEMP 97.9
[2017-03-12] MEDS: lamoTRIgine 100 MG TAB PO SCH (08:24)
[2017-03-12] MEDS: LITHIUM CARBONATE 300 MG TAB PO SCH ×2 (08:24→18:05)
[2017-03-12] MEDS: BREXPIPRAZOLE 2 MG TAB PO SCH (20:18)
[2017-03-12] MEDS: BREXPIPRAZOLE 3 MG TAB PO SCH (20:18)
[2017-03-12] MEDS: OLANZapine DISINTEGR 10 MG TAB PO SCH (20:19)
--- NOTE | 2017-03-12 22:07 | SOAPPROG ---
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 Plan: 03/13/17 01:04 Per staff, slept 10.5 hrs. attending groups. Staff report his scoring on BDI worse than upon admission, including noting future is hopeless. (initial BDI did not seem filled out in a clear mental state, however, given stray ahumada and circles out of place) On interview, reports "feeling better...I'm not feeling that impulsive right now ". Feels "group therapies" helped while here. Talked of his SI x 1mo with depression leading up to impulsive OD, but adds that he had been researching a few weeks earlier online "the LD50 of Klonopin" but couldn't find it, altho noted many posts on not using Klon w/EtOH, so he figured he would just take all the pills and add EtOH. If he had found the LD50, "I would've just doubled the dose". Talked of recent change of Dx to BMD in 11/2016 after became manic. This is still a difficult Dx for him, he admits. "but I just found a book on Bipolar wedged under my bed and started reading it". States his feeling hopeless abt future noted on BDI related to having this BMD dx which he still isn't happy about. Discussed this and mgmt. States graduate work has been hampered by his depr over past few months. Initially denied any SI since admission, then admitted to having had +SI yesterday evening to hang self, which lasted for about 1 hr. Thoughts followed by "this hospital is designed nicely to prevent that...even the door handles are weird...maybe a chair." Attributes SI thoughts to anxiety/stress around missing TA duties and meetings while here, also unopened emails, and thinking about how he has fallen behind on assigned tasks/deadlines suggested by his advisor for his graduate work. States he did NOT tell anyone yesterday, but then did talk about it in group but was redirected. States at home when he had SI, eventually they would go away by him falling asleep or getting distracted. States prior to admission, SI came and went almost daily, but had not had any here until admitted having SI last PM. 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 MSE: cooperative, engaged, good eye contact, nml speech, mood "feeling better", affect constricted and admits feels like crying, sounded nasally congested but when asked about this, reports bc he "feels like crying". Has experienced this feeling episodically over the past few mo. also notes opposite where friends tell him "you're not as witty as before" despite laughing at things not funny "like when I was taking the pills (overdose)". thoughts with goal-directed responses, denied AH/VH although admits hx of AH prior to Zyprexa, and some AH "mumbling" prior to admission but not since. denied IOR or any other psychotic symptoms. denied current SI or any thoughts of harming others. i/j- seem intact. cognition intact. Reports no med s/e, although still having some AM sedation. PLAN: -continue current meds. still with some AM sedation but less with decr zyprexa. Perhaps Lamictal change to hs could decr AM sedation? may need continued uptitration for bipolar depr mood -arrange f/u with therapist to incr MH contact/supports after d/c. would also benefit from groups, also DBT as outpatient. -has outpt psychiatrist appt 03/15 -check Li+ level in AM -staff supervised use of his computer to check emails today which he admits would decr his anxiety, which had led to SI last pm -agreed to stay until tomorrow- to ck labs, allow for another day following med changes, and skin care therapist would like to ensure pt has a f/u appt arranged with a therapist at d/c not just psychiatrist. chronic risk of self harm w/hx of impulsivity but expressing motivation for tx -needs cont'd education about and support around BMD Dx and ability to lead nml life with treatment/mgmt of illness, this dx is still difficult for him. Objective: Vital Signs Temp Pulse Resp BP Pulse Ox 36.6 C 78 12 107/71 94 03/12/17 06:00 03/12/17 06:00 03/12/17 06:00 03/12/17 06:00 03/12/17 06:00 - Time Spent With Patient Time Spent With Patient: 50 min - Pending Discharge Pending Discharge Within 24 Hours: Yes Pending Discharge Within 48 Hours: No Pending Discharge Date: 03/14/17 Pending Discharge Time: 11:00 ICD10 Worksheet Patient Problems: Problems Problem Status Onset Overdose Acute Suicidal ideation Acute Bipolar disease, manic Acute
[2017-03-13 06:21] VITALS: BP 107/63; PULSE 69; RESP 14; O2SAT 96
[2017-03-13] MEDS: lamoTRIgine 100 MG TAB PO SCH (08:29)
[2017-03-13] MEDS: LITHIUM CARBONATE 300 MG TAB PO SCH (08:29)
[2017-03-13 10:04] LABS: LITHIUM 0.7 mEq/L (0.6-1.2)
--- NOTE | 2017-03-13 14:39 | BDS ---
[f rep st] BEHAVIORAL HEALTH DISCHARGE SUMMARY REASON FOR ADMISSION: The patient is a 26-year-old Yi male who was admitted to the inpatient [facility] unit after having been brought to the facility by his roommate. He apparently had t aken an impulsive overdose of approximately 15 0.5 mg clonazepam tablets, stating to his roommate th at he was having thoughts of suicide. The roommate then immediately put him in the car and took him to the emergency department where he was evaluated and admitted for suicidality. He had previously been a patient in our facility in November of this year and had been managed in the community by Dr. Sreedhar Mike for bipolar disorder. A full description of the events preceding admission can be f ound in his admission history dated 03/09/2017. ADMITTING DIAGNOSES: Bipolar type 1 disorder, most recent episode depressed, moderate to severe wit hout psychosis. Academic stress, marginal supports, chronic illness. ADMISSION PHYSICAL EXAMINATION: Performed Dr. Ari Russ. It is unremarkable. ADMISSION LABORATORY: CBC is normal. Serum chemistries are normal. Urine drug screen shows no sub stances of abuse. [place] level was 0.7. Alcohol was less than detectable. HOSPITAL COURSE: Patient was admitted to the [facility] inpatient unit on an M1 hold. He was guarded, though pleasant and cooperative. He described the odd series of events that led u p to his being brought to the hospital and initially described them as some form of a bet, though he essentially said he was betting himself whether he would wake up or not. He states that his roomma te was involved, though the roommate obviously was very concerned and brought him to the hospital. His presentation was very similar to the presentation in November, at which time I treated him as wel l. He is very concrete and somewhat odd in his personality. He described convincingly having had m anic and mixed manic symptoms back in November, but descending into more of a persistent depression r ecently. He states that he had been having thoughts of suicide over the preceding month before this event, but has not actually harmed himself. Later in his hospitalization, he stated that he had a brief visual image of hanging himself at 1 point as well. He states that he did not act on this and repeatedly stated during his hospitalization that he did not have an intention to harm or kill hims elf. I was able to speak with Dr. Sreedhar Mike, the patient's outpatient psychiatrist through the [facility] the [facility]. He shared my observation of the patient's personality a nd that this somewhat clouded the overall picture. The patient's behaviors were odd enough and his interpretations of his environments were idiosyncratic enough to almost appears psychotic. He state d that this seemed consistent with his personality and previous behaviors and that he could likely r eturn to outpatient treatment when appropriate. We had discussed potentially increasing the patient 's Lamictal and Rexulti and decreasing the Zyprexa. This was done, increasing the Rexulti 3 from 1 to 2 and ultimately 3 mg. He tolerated this well with no side effects. The Lamictal was increased from 150 to 200 mg. The Zyprexa was decreased from 15 to 10 mg. The patient was given Ativan as ne eded, though no other medications were introduced. The patient was cooperative and interactive throughout his stay. He participated in all individual and group therapies. He noted a gradual improvement in his mood, though did disclose to Dr. Walters on the weekend that he had had that brief thought of hanging himself. She believed that he could st ay in the hospital another day and process this, and when I saw him on Monday, March 13, he stated th at he was "100% sure I am not going to kill myself." He stated that it helped him to discuss the th oughts, but that he felt he was in control of his behaviors and was not concerned that he would act out against himself. He requested discharge in order to attend to some of his academic duties and h ad an appointment on Monday at noon with his outpatient psychiatrist, Dr. Mike. His affect was s lightly blunted, though I have a sense this is part of his baseline, but was brighter than on admiss ion. His mood was described as "pretty good" and he was having no active thoughts of suicide. The patient was allowed to be discharged to home to follow up with Dr. Mike. CONDITION ON DISCHARGE: Stable. He is having no thoughts of suicide. He is tolerating his medicat ions well. He was forward thinking and appropriate. DISCHARGE MEDICATIONS: Lamictal 200 mg daily, Rexulti 3 mg q.h.s., Zyprexa 10 mg q.h.s., lithium ca rbonate 300 mg in the morning and 600 mg q.h.s. It is of note that the patient was discharged on 2 antipsychotics. The reasoning for this was he wa s switching over from the Zyprexa to the Rexulti. DISCHARGE DIAGNOSES: Bipolar I disorder, most recent episode depressed, moderate to severe without psychosis. Academic stress, lack of natural supports, chronic illness. DISPOSITION: Patient left the hospital of his own accord to return to his apartment. FOLLOWUP: Followup is with Dr. Mike at the [facility] on MondayMarch 15 at noon. LEGAL COURSE: Patient was converted to voluntary status at the expiration of his M1 hold. /[id number]/MODL
== END 2017-03-13 11:52 | disposition home or self-care (01) | DRG 918 ==
LOC: BBEH 16:35
PROVIDERS: ADMIT Psychiatry & Neurology Psychiatry; ATTEND Psychiatry & Neurology Psychiatry
DX: T42.4X2A Poisoning by benzodiazepines, intentional self-harm, initial encounter (principal); F31.4 Bipolar disorder, current episode depressed, severe, without psychotic features
CPT/HCPCS: 80305; G0480

== ENCOUNTER 2017-03-15 13:59 | Emergency (ER) | payer OTHER ==
--- NOTE | 2017-03-15 14:38 | EDPHY ---
H & P Smoking Status: Never smoked <Lisset Concepcion S - Last Filed: 03/15/17 14:35> <Marilia Wuorah S - Last Filed: 03/15/17 17:36> Time Seen by Provider: 03/15/17 14:25 HPI/ROS: CHIEF COMPLAINT: M1 hold HISTORY OF PRESENT ILLNESS: Patient is a 26-year-old male with a history of bipolar disorder. He was recently admitted to [address] [place] [address] after taking a Klonopin overdose. He was in the hospital for 6 days and discharged on Monday. Came to his scheduled appointment today. He saw a nurse practitioner therapist. He told the therapist that causes appeared brighter in the was paranoid of the hospital. Because of this police were called and the patient was placed on a hold. The patient denies suicidal ideation or homicidal ideation. He has been taking his medications as directed. Patient states he is not sure why he is placed on a hold her in the emergency department. REVIEW OF SYSTEMS: My complete review of systems is negative except as mentioned in the HPI. ( Lisset Concepcion) Past Medical/Surgical History: Includes bipolar disorder Past surgical history: Appendectomy Social history: The patient denies drugs or alcohol (Lisset Concepcion) Physical Exam: GENERAL: No acute distress, alert. HEENT: Eyes normal to inspection, normal pharynx, no signs of dehydration. NECK: No thyromegaly, no lymphadenopathy, supple. RESPIRATORY: Clear to auscultation bilaterally, no rales, rhonchi or wheezing. CVS: Regular rate and rhythm, no rubs, murmurs, or gallops. ABDOMEN: Soft, nontender, nondistended, no organomegaly. BACK: Normal to inspection, no CVA tenderness. SKIN: Normal color, no rash, warm, dry. No pallor. EXTREMITIES: Normal. NEURO/PSYCH: Alert and oriented, normal mood and affect, cooperative. ( Lisset Concepcion) Constitutional: Initial Vital Signs Temperature (C) 36.7 C 03/15/17 13:59 Heart Rate 86 03/15/17 13:59 Respiratory Rate 17 03/15/17 13:59 Blood Pressure 131/81 H 03/15/17 13:59 O2 Sat (%) 95 03/15/17 13:59 O2 Delivery Mode Room Air Allergies/Adverse Reactions: No Known Allergies Allergy (Verified 03/15/17 14:15) Home Medications: Medication Instructions Recorded Tajique Carbonate [Tajique 300 mg PO DAILY 03/08/17 Carbonate Cap 300 mg (*)] Tajique Carbonate [Tajique 600 mg PO DAILY@20 03/08/17 Carbonate Cap 300 mg (*)] Brexpiprazole [Rexulti 3 MG (*)] 3 mg PO HS #0 tab 03/13/17 OLANZapine DISINTEGR [ZyPREXA 10 mg PO HS #0 tab 03/13/17 ZYDIS (*)] lamoTRIgine [LamICTAL 100 MG (*)] 200 mg PO DAILY #60 tab 03/13/17 Medical Decision Making <Lisset Concepcion - Last Filed: 03/15/17 14:35> <Madeleine Wu - Last Filed: 03/15/17 17:36> ED Course/Re-evaluation: In the emergency department I discussed possible etiologies with the patient. I explained the M1 hold. The patient consents to laboratory studies and evaluation by [facility]. I answered all his questions. 1500: Patient is signed out at change of shift. The patient is awaiting evaluation by [facility]. (Lisset Concepcion) 1500: Care of this patient was transferred to wi by Dr. Concepcion at change of shift. He is awaiting mental health evaluation at this time. 1734: The patient was evaluated by [facility] and cleared to go home. I agree with this assessment. I evaluated the patient myself; he has not expressed any suicidal or homicidal ideation while in the ED. (Madeleine Wu) Differential Diagnosis: My differential includes but is not limited to bipolar disorder, katlin, hallucinations, suicidal ideation (Lisset Concepcion) - Data Points Laboratory Results: Laboratory Results 03/15/17 14:40 03/15/17 14:40 03/15/17 03/15/17 03/15/17 14:40 14:40 14:40 WBC 5.88 10^3/uL 10^3/uL (3.80-9.50) RBC 5.26 10^6/uL 10^6/uL (4.40-6.38) Hgb 15.8 g/dL g/dL (13.7-17.5) Hct 46.2 % % (40.0-51.0) MCV 87.8 fL fL (81.5-99.8) MCH 30.0 pg pg (27.9-34.1) MCHC 34.2 g/dL g/dL (32.4-36.7) RDW 12.1 % % (11.5-15.2) Plt Count 212 10^3/uL 10^3/uL (150-400) MPV 9.5 fL fL (8.7-11.7) Neut % (Auto) 71.2 % % (39.3-74.2) Lymph % (Auto) 19.2 % % (15.0-45.0) [place] % (Auto) 6.5 % % (4.5-13.0) Eos % (Auto) 2.2 % % (0.6-7.6) Baso % (Auto) 0.7 % % (0.3-1.7) Nucleat RBC Rel Count 0.0 % % (0.0-0.2) Absolute Neuts (auto) 4.19 10^3/uL 10^3/uL (1.70-6.50) Absolute Lymphs (auto) 1.13 10^3/uL 10^3/uL (1.00-3.00) Absolute Monos (auto) 0.38 10^3/uL 10^3/uL (0.30-0.80) Absolute Eos (auto) 0.13 10^3/uL 10^3/uL (0.03-0.40) Absolute Basos (auto) 0.04 10^3/uL 10^3/uL (0.02-0.10) Absolute Nucleated RBC 0.00 10^3/uL 10^3/uL (0-0.01) Immature Gran % 0.2 % % (0.0-1.1) Immature Gran # 0.01 10^3/uL 10^3/uL (0.00-0.10) Sodium 141 mEq/L mEq/L (134-144) Potassium 3.8 mEq/L mEq/L (3.5-5.2) Chloride 106 mEq/L mEq/L (97-110) Carbon Dioxide 22 mEq/l mEq/l (22-31) Anion Gap 13 mEq/L mEq/L (8-16) BUN 11 mg/dL mg/dL (7-23) Creatinine 1.0 mg/dL mg/dL (0.7-1.3) Estimated GFR > 60 Glucose 90 mg/dL mg/dL (70-100) Calcium 9.8 mg/dL mg/dL (8.5-10.4) Urine Opiates Screen NEGATIVE (NEGATIVE) Urine Barbiturates NEGATIVE (NEGATIVE) Ur Phencyclidine Scrn NEGATIVE (NEGATIVE) Ur Amphetamine Screen NEGATIVE (NEGATIVE) U Benzodiazepines Scrn NEGATIVE (NEGATIVE) Urine Cocaine Screen NEGATIVE (NEGATIVE) U Marijuana (THC) Screen NEGATIVE (NEGATIVE) Ethyl Alcohol < 10 mg/dL mg/dL (0-10) Departure <Lisset Concepcion S - Last Filed: 03/15/17 14:35> <Madeleine Wu - Last Filed: 03/15/17 17:36> - Departure Disposition: Home, Routine, Self-Care Clinical Impression: Bipolar 1 disorder Condition: Good Instructions: Bipolar Disorder (ED) Additional Instructions: 1. Continue to take your medications as prescribed and keep all scheduled follow -up appointments. 2. Return to the Emergency Department if you experience thoughts of harming yourself or others, hear or see things that are not there, feel anxious or overwhelmed, or for any other serious concerns. Referrals: [facility],. [Clinic] - As per Instructions Report Scribed for: Madeleine Wu Report Scribed by: Kym Kam Date of Report: 03/15/17 Time of Report: 15:13 <Madeleine Wu - Last Filed: 03/15/17 17:36>
[2017-03-15 14:59] LABS: % IMMATURE GRANULYOCYTES 0.2 % (0.0-1.1); ABSOLUTE IMMATURE GRANULOCYTES 0.01 10^3/uL (0.00-0.10); ADD DIFF? NO; ADD MORPH? NO; ADD SCAN? NO; ATYPICAL LYMPHOCYTE FLAG 0 (0-99); FRAGMENT RBC FLAG 0 (0-99); HEMATOCRIT 46.2 % (40.0-51.0); HEMOGLOBIN 15.8 g/dL (13.7-17.5); LEFT SHIFT FLG 0 (0-99); LIPEMIA HEMOLYSIS FLAG 90 (0-99); MEAN CELL HEMOGLOBIN CONCENTR. 34.2 g/dL (32.4-36.7); MEAN CELL VOLUME 87.8 fL (81.5-99.8); MEAN PLATELET VOLUME 9.5 fL (8.7-11.7); PLATELET CLUMPS FLAG 0 (0-99); PLATELET COUNT 212 10^3/uL (150-400); RED BLOOD CELL COUNT 5.26 10^6/uL (4.40-6.38); RED CELL DISTRIBUTION WIDTH 12.1 % (11.5-15.2)
[2017-03-15 15:24] LABS: ANION GAP 13 mEq/L (8-16); CALCIUM 9.8 mg/dL (8.5-10.4); CARBON DIOXIDE 22 mEq/l (22-31); CHLORIDE 106 mEq/L (97-110); ETHANOL SERUM < 10 mg/dL (0-10); GLOMERULAR FILTRATION RATE > 60; GLUCOSE 90 mg/dL (70-100); POTASSIUM 3.8 mEq/L (3.5-5.2); SODIUM 141 mEq/L (134-144)
[2017-03-15 17:06] VITALS: BP 132/81; PULSE 84; RESP 16; TEMP 98.2; O2SAT 98
== END 2017-03-15 17:39 | disposition home or self-care (01) ==
DX: F31.9 Bipolar disorder, unspecified (principal)
CPT/HCPCS: 80305; G0480

== ENCOUNTER 2018-10-20 19:36 | Inpatient (IN) | payer OTHER ==
--- NOTE | 2018-10-20 19:52 | EDPHY ---
H & P Time Seen by Provider: 10/20/18 19:39 HPI/ROS: CHIEF COMPLAINT: M1 HISTORY OF PRESENT ILLNESS: 28-year-old male in the ER via [facility] police. Patient states that he stop taking his Klonopin and Zyprexa 2 weeks ago. The police have shared with me a in the male written by the patient to his professor today, subject line, "Doctor's think I am crazy" . In this e- mail he discusses, for example, "I was a slave this semester to the doctors..." , "In fact, I came by your office on and Monday, but you weren't there. I wanted you to see me cut myself so I can prove to you that I am in control of my own mind. I grabbed an exacto know from a lab drawer but you weren 't there." Denies suicidal or homicidal ideation. Denies alcohol or drug use. REVIEW OF SYSTEMS: 10 systems reviewed and negative with the exception of the elements mentioned in the history of present illness PAST MEDICAL & SURGICAL HISTORY: Bipolar 1 disorder with history of psychotic features versus schizoaffective disorder bipolar type SOCIAL HISTORY: Denies acute alcohol or drug use. 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 PHYSICAL EXAM (Prior to examination, patient consented to physical exam, hands were washed and my usual and customary physical exam procedures followed) 1) GENERAL: Well-developed, well-nourished, alert and oriented. Appears anxious.. 2) HEAD: Normocephalic, atraumatic 3) HEENT: Pupils equal, round, reactive to light bilaterally. Sclera anicteric. 4) NECK: Full range of motion, no meningeal signs. 5) LUNGS: Clear auscultation bilaterally, no wheezes, no rhonchi, no retractions. 6) HEART: Regular rate and rhythm, no murmur, no heave, no gallop. 7) ABDOMEN: No guarding, no rebound, no focal tenderness n, 8) MUSCULOSKELETAL: Moving all extremities, no focal areas of tenderness, no obvious trauma. No peripheral edema or discoloration. 9) BACK: No CVA tenderness, no midline vertebral tenderness, no fluctuance, no step-off, no obvious trauma, no visual or palpable abnormality. 10) SKIN: No rash, no petechiae. 11) Psychiatric: Patient is oriented X 3, there is no agitation. DIFFERENTIAL DIAGNOSIS: In no particular order including but not limited to psychosis, katlin, suicidal ideation, homicidal ideation - Medical/Surgical History Hx Asthma: No Hx Chronic Respiratory Disease: No Hx Diabetes: No Hx Cardiac Disease: No Hx Renal Disease: No Hx Cirrhosis: No Hx Alcoholism: No Hx HIV/AIDS: No Hx Splenectomy or Spleen Trauma: No Other PMH: bipolar - Social History Smoking Status: Never smoked Constitutional: Initial Vital Signs Temperature (C) 36.3 C 10/20/18 19:47 Heart Rate 89 10/20/18 19:47 Respiratory Rate 20 10/20/18 19:47 Blood Pressure 158/106 H 10/20/18 19:47 O2 Sat (%) 93 10/20/18 19:47 O2 Delivery Mode Room Air Allergies/Adverse Reactions: No Known Allergies Allergy (Verified 10/20/18 19:42) Home Medications: Medication Instructions Recorded [place]dwell Carbonate [Caldwell 300 mg PO DAILY 03/08/17 Carbonate Cap 300 mg (*)] [place]dwell Carbonate [[place]dwell 600 mg PO DAILY@20 03/08/17 Carbonate Cap 300 mg (*)] Brexpiprazole [Rexulti 3 MG (*)] 3 mg PO HS #0 tab 03/13/17 OLANZapine DISINTEGR [ZyPREXA 10 mg PO HS #0 tab 03/13/17 ZYDIS (*)] lamoTRIgine [LamICTAL 100 MG (*)] 200 mg PO DAILY #60 tab 03/13/17 Medical Decision Making ED Course/Re-evaluation: 7:50 p.m.: Patient is on an M1 hold. He agrees to diagnostic studies. Care of patient under supervision of secondary supervising physician Dr Quiles with whom I discussed case. 11:01 p.m.: Patient accepted for admission Dr. Viral Correa [address] LIANEALA paperwork completed. - Data Points Laboratory Results: Laboratory Results 10/20/18 19:56 10/20/18 19:56 10/20/18 10/20/18 10/20/18 19:56 19:56 19:56 WBC RBC Hgb Hct MCV MCH MCHC RDW Plt Count MPV Neut % (Auto) Lymph % (Auto) [place] % (Auto) Eos % (Auto) Baso % (Auto) Nucleat RBC Rel Count Absolute Neuts (auto) Absolute Lymphs (auto) Absolute Monos (auto) Absolute Eos (auto) Absolute Basos (auto) Absolute Nucleated RBC Immature Gran % Immature Gran # Sodium 140 mEq/L mEq/L (135-145) Potassium 4.0 mEq/L mEq/L (3.5-5.2) Chloride 106 mEq/L mEq/L (97-110) Carbon Dioxide 22 mEq/l mEq/l (22-31) Anion Gap 12 mEq/L mEq/L (6-14) BUN 16 mg/dL mg/dL (7-23) Creatinine 1.1 mg/dL mg/dL (0.7-1.3) Estimated GFR > 60 Glucose 108 mg/dL H mg/dL (70-100) Calcium 9.9 mg/dL mg/dL (8.5-10.4) Salicylates < 1.0 mg/dL L mg/dL (2.0-20.0) Urine Opiates Screen NEGATIVE (NEGATIVE) Acetaminophen < 10 mcg/mL L mcg/mL (10-30) Urine Barbiturates NEGATIVE (NEGATIVE) Ur Phencyclidine Scrn NEGATIVE (NEGATIVE) Ur Amphetamine Screen NEGATIVE (NEGATIVE) U Benzodiazepines Scrn NEGATIVE (NEGATIVE) [place]dwell 0.2 mEq/L L mEq/L (0.6-1.2) Urine Cocaine Screen NEGATIVE (NEGATIVE) U Marijuana (THC) Screen NEGATIVE (NEGATIVE) Ethyl Alcohol < 10 mg/dL mg/dL (0-10) 10/20/18 19:56 WBC 7.86 10^3/uL 10^3/uL (3.80-9.50) RBC 5.72 10^6/uL 10^6/uL (4.40-6.38) Hgb 17.1 g/dL g/dL (13.7-17.5) Hct 49.0 % % (40.0-51.0) MCV 85.7 fL fL (81.5-99.8) MCH 29.9 pg pg (27.9-34.1) MCHC 34.9 g/dL g/dL (32.4-36.7) RDW 12.9 % % (11.5-15.2) Plt Count 249 10^3/uL 10^3/uL (150-400) MPV 9.1 fL fL (8.7-11.7) Neut % (Auto) 55.6 % % (39.3-74.2) Lymph % (Auto) 31.0 % % (15.0-45.0) [place] % (Auto) 8.8 % % (4.5-13.0) Eos % (Auto) 3.4 % % (0.6-7.6) Baso % (Auto) 0.6 % % (0.3-1.7) Nucleat RBC Rel Count 0.0 % % (0.0-0.2) Absolute Neuts (auto) 4.36 10^3/uL 10^3/uL (1.70-6.50) Absolute Lymphs (auto) 2.44 10^3/uL 10^3/uL (1.00-3.00) Absolute Monos (auto) 0.69 10^3/uL 10^3/uL (0.30-0.80) Absolute Eos (auto) 0.27 10^3/uL 10^3/uL (0.03-0.40) Absolute Basos (auto) 0.05 10^3/uL 10^3/uL (0.02-0.10) Absolute Nucleated RBC 0.00 10^3/uL 10^3/uL (0-0.01) Immature Gran % 0.6 % % (0.0-1.1) Immature Gran # 0.05 10^3/uL 10^3/uL (0.00-0.10) Sodium Potassium Chloride Carbon Dioxide Anion Gap BUN Creatinine Estimated GFR Glucose Calcium Salicylates Urine Opiates Screen Acetaminophen Urine Barbiturates Ur Phencyclidine Scrn Ur Amphetamine Screen U Benzodiazepines Scrn [place] Urine Cocaine Screen U Marijuana (THC) Screen Ethyl Alcohol Departure - Departure Disposition: [facility] Clinical Impression: Acute psychosis Condition: Fair
[2018-10-20 20:03] LABS: PLATELET COUNT 249 10^3/uL (150-400)
--- NOTE | 2018-10-20 22:36 | ASMTTLCEVL ---
TLC Evaluation - Basic Information Evaluation Start Date and 10/20/2018 09:30 PM Time Hospital Status Answers: M1 Hold 72-hr M1 Hold Start Date 10/20/2018 07:36 PM and Time Patient statement Notes: "I am here ulisses fitzgerald I was having suicidal thoughts and wrote an email to a professor who contacted the police. 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 PT presented to the ED via EMS and police on a m1 hold. A professor notified campus police of a letter detailing a suicide plan and self report of voices and delusional grandious thoughts. "I wanted you to see me cut myself so I can prove to you that I am in control of y own mind. I grabbed an exacto knife from the lab drawer but you weren't there. You might have added a few days to my expected life expectancy by not being there. Thank you! I'm pathetic and a loser, but not insane. SOmetimes (sic) I hear things and see things, but i (sic) don't tell that to the doctos(sic) because they'll put me away. I was in the hopsital 3 time so far, each of these because the doctors think I need "help!" Well, I don't ramiro help. I perfect the way i (sic) am. You understand right?...the voices are just God's way of talking to me. He helps me better understadn(sic) myself" PT stated in the letter that he had not refilled his prescription after he ran out of meds:"I was a slave this semester to the doctors, but I stopped taking the clonzepam and olanzapine because I ran out, and I;ve (sic) never been more sane. I also stopped the vraylar and linette(sic) never been more liberated!" Per Ed report "28-year-old male in the ER via [facility] police. Patient states that he stop taking his Klonopin and Zyprexa 2 weeks ago. The police have shared with me a in the male written by the patient to his professor today, subject line, "Doctor's think I am crazy" . In this e-mail he discusses, for example, "I was a slave this semester to the doctors...", "In fact, I came by your office on and Monday, but you weren't there. I wanted you to see me cut myself so I can prove to you that I am in control of my own mind. I grabbed an exacto know from a lab drawer but you weren't there." Diagnosis History Notes: Bipolar I Disorder, with Psychotic Features 296.44 (F31.2) Per previous In-pt psyc discharge summary - Pts diagnosis when seen at the clinic on 11/23/16 was bipolar disorder unspecified , mood disorder nos rule out bipolar disorder with psychotic features; or mdd, recurrent with psychotic features. Pt reported he has a hx of 2 prior manic like episodes which did not require any treatment. i just had a lot of energy. Pt did report during his childhood he had trouble looking people in the faces because it was as if their faces were distorted. Pt indicated his grandfather just told him to act normal like the other boys. Prior suicide attempts Notes: 1 prior attempt in 2017 via OD of meds that led to his most recent psychiatic hospitalizaiton: Pt denied any hx of past suicide attempts. Before starting Prozac pt reported he was having some suicidal thoughts which decreased after starting the Prozac. Prior hospitalizations Notes: 3 prior hospitalizations 1 in [place] and 2 in 2017 at [facility] inpt Psych Medical/Surgical history Notes: Pt has a hx of an appendectomy at age 18/19. Substance use history (frequency, intensity, his tory, duration) Notes: Pt reported he seldom drinks, perhaps every three months, he will have 1-2 drinks. Pt denied any hx of past alcohol abuse. Pt reported he has never used marijuana nor has he ever used any street drugs. Family composition Notes: Pt has a younger brother who is 3 yrs younger and studying in [place]. His parents who are live in [place]. Need for family Answers: Yes participation in patient's care Family psychiatric/substance abuse history Notes: Pt's maternal grandmother and possibly his mother has suffered from depression. There was no family hx reported of substance abuse/use. Developmental history Notes: PT denied any hx of developmental delays including no past hx of a dx of add or adhd. Pt also denied any hx of loc, head injury or concussions. Abuse concerns Answers: None Marital status/children Notes: Unmarried with no children Living situation Notes: PT lives in gradstudent housing with his mother. Sexual history/orientation Notes: Heterosexual not ative Peer support/family strengths Notes: Pt reported he has some friends through his academic involvement Pt's mother is in town and was at Pt's bedside after pt was brought in to ED. Treatment Responses Notes: Most recent [facility] IN-PT STAY DISCHARGE SUMMARY Patient Name: AGUS HIDALGO Rpt#: [id number] Unit Number: [id number] Attending/ER Physician: Nadeen Eaton MD Patient Type: DIS IN Adm Date/Source: 03/08/17 EMR Discharge Date: 03/13/17 Primary Carrier: CAIO JENNINGS REASON FOR ADMISSION: The patient is a 26-year-old Amharic male who was admitted to the inpatient behavioral health unit after having been brought to the facility by his roommate. He apparently had taken an impulsive overdose of approximately 15 0.5 mg clonazepam tablets, stating to his roommate that he was having thoughts of suicide. The roommate then immediately put him in the car and took him to the emergency department where he was evaluated and admitted for suicidality. He had previously been a patient in our facility in November of this year and had been managed in the community by Dr. Sreedhar Mike for bipolar disorder. A full description of the events preceding admission can be found in his admission history dated 03/09/2017. ADMITTING DIAGNOSES: Bipolar type 1 disorder, most recent episode depressed, moderate to severe without psychosis. Academic stress, marginal supports, chronic illness. ADMISSION PHYSICAL EXAMINATION: Performed Dr. Ari Russ. It is unremarkable. ADMISSION LABORATORY: CBC is normal. Serum chemistries are normal. Urine drug screen shows no substances of abuse. [place] level was 0.7. Alcohol was less than detectable. HOSPITAL COURSE: Patient was admitted to the behavior health services inpatient unit on an M1 hold. He was guarded, though pleasant and cooperative. He described the odd series of events that led up to his being brought to the hospital and initially described them as some form of a bet, though he essentially said he was betting himself whether he would wake up or not. He states that his roommate was involved, though the roommate obviously was very concerned and brought him to the hospital. His presentation was very similar to the presentation in November, at which time I treated him as well. He is very concrete and somewhat odd in his personality. He described convincingly having had manic and mixed manic symptoms back in November, but descending into more of a persistent depression recently. He states that he had been having thoughts of suicide over the preceding month before this event, but has not actually harmed himself. Later in his hospitalization, he stated that he had a brief visual image of hanging himself at 1 point as well. He states that he did not act on this and repeatedly stated during his hospitalization that he did not have an intention to harm or kill himself. I was able to speak with Dr. Sreedhar Mike, the patient's outpatient psychiatrist through the [facility] at the [facility]. He shared my observation of the patient's personality and that this somewhat clouded the overall picture. The patient's behaviors were odd enough and his interpretations of his environments were idiosyncratic enough to almost appears psychotic. He stated that this seemed consistent with his personality and previous behaviors and that he could likely return to outpatient treatment when appropriate. We had discussed potentially increasing the patient's Lamictal and Rexulti and decreasing the Zyprexa. This was done, increasing the Rexulti 3 from 1 to 2 and ultimately 3 mg. He tolerated this well with no side effects. The Lamictal was increased from 150 to 200 mg. The Zyprexa was decreased from 15 to 10 mg. The patient was given Ativan as needed, though no other medications were introduced. The patient was cooperative and interactive throughout his stay. He participated in all individual and group therapies. He noted a gradual improvement in his mood, though did disclose to Dr. Walters on the weekend that he had had that brief thought of hanging himself. She believed that he could stay in the hospital another day and process this, and when I saw him on March 13, he stated that he was "100% sure I am not going to kill myself." He stated that it helped him to discuss the thoughts, but that he felt he was in control of his behaviors and was not concerned that he would act out against himself. He requested discharge in order to attend to some of his academic duties and had an appointment on Monday at noon with his outpatient psychiatrist, Dr. Mike. His affect was slightly blunted, though I have a sense this is part of his baseline, but was brighter than on admission. His mood was described as "pretty good" and he was having no active thoughts of suicide. The patient was allowed to be discharged to home to follow up with Dr. Mike. CONDITION ON DISCHARGE: Stable. He is having no thoughts of suicide. He is tolerating his medications well. He was forward thinking and appropriate. DISCHARGE MEDICATIONS: Lamictal 200 mg daily, Rexulti 3 mg q.h.s., Zyprexa 10 mg q.h.s., lithium carbonate 300 mg in the morning and 600 mg q.h.s. It is of note that the patient was discharged on 2 antipsychotics. The reasoning for this was he was switching over from the Zyprexa to the Rexulti. DISCHARGE DIAGNOSES: Bipolar I disorder, most recent episode depressed, moderate to severe without psychosis. Academic stress, lack of natural supports, chronic illness. DISPOSITION: Patient left the hospital of his own accord to return to his apartment. FOLLOWUP: Followup is with Dr. Mike at the [facility] on MondayMarch 15 at noon. LEGAL COURSE: Patient was converted to voluntary status at the expiration of his M1 hold History of violence Notes: None reported Psychiatrist: Sreedhar Mike MD Medications (name, dosage, route, freq uency) Notes: Per pt's letter he stopped taking his meds: Clonzepam Olanzapine Vraylar Pt's discharge summary medications from last inpt stay in 2016 were as follows: Lamictal 200 mg daily, Rexulti 3 mg q.h.s., Zyprexa 10 mg q.h.s., lithium carbonate 300 mg in the morning and 600 mg q.h.s. 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 Uatsdin/Spiritual Notes: Pt reported he has no synagogue or spiritual beliefs that would impact his treatment. Leisure Notes: "Nothing" I don't have a lot of free time, when I do, I like to do nothing Collateral Notes: Collateral data obtained from previous [facility] inpt records and from police with PT's emailed letter and a note from Dr. Mike regarding pt's mental state and academic status. Patient's strengths Answers: Artistic/Creative/Musical (Please select at least TWO strengths): Good Friend to Others Honest Insightful Intelligent [place] Responsible/Dependable Supportive/Compassionate Supportive Family Willingness TLC Evaluation - Mental Status Exam Appearance: Answers: Appropriate Clean Well Groomed Eye Contact: Answers: Appropriate for Culture Intermittent Mood: Answers: Depressed Affect: Answers: Appropriate Apprehensive Distracted Nervous Behavior: Answers: Appropriate Cooperative Restless Speech: Answers: Relevant Logical Clear Coherent Delayed Thought Process: Answers: Disorganized Oriented Circumstantial Distracted Thought Blocking Insight: Answers: Poor Judgement: Answers: Poor Manic Signs/Symptoms Answers: Distractibility Grandiosity Impulsivity Mood Swings Racing Thoughts Depression Answers: Difficulty Concentrating Signs/Symptoms: Diminished Interest Diminished Pleasure Flat Affect Psychomotor Agitation Psychomotor Retardation Sad Mood Withdrawn Hallucinations: Answers: Auditory Delusions: Answers: Grandiose Paranoid Ideation Persecution Pt reported to have Answers: Yes suicidal/self-injuring ideation/behavior? Pt reported to be making Answers: Yes suicidal/self-injuring threats? Pt reported to have Answers: No aggression/assault ideation/behavior? Pt reported to be making Answers: No aggression/assault threats? Pt exhibits inability to Answers: Yes care for self/grave disability? Ideation/behavior is Answers: Yes chronic? Patient has a specific Answers: Yes plan? Pt has access to means to Answers: Yes execute the plan? Ideation involves Answers: Yes serious/lethal intent? Ideation has Answers: Yes delusional/hallucinatory content? History of Answers: Yes suicidal/self-injuring ideation, behavior, or threats? History of Answers: No aggressive/assaultive ideation, behavior, or threats? History of serious Answers: No physical harm to self/others while in treatment setting? TLC Evaluation - Suicide/Homicide Risk Suicide Risk Factors: Answers: Anhedonia Bipolar Disorder Flat Affect Hopelessness Impulsivity Inadequate Social Support Organized Lethal Plan Prior Suicide Attempt(s) School Difficulties Single Homicide/violence risk Answers: Paranoid Ideation factors: Current Suicidal Answers: Yes Ideation? Current Suicide Ideation Today, and several times in the last two weeks Frequency: Current Suicidal Ideation Answers: Yes in the Past 48 Hours? Current Suicidal Ideation Answers: Yes in the Past Month? Suicide Internal Answers: None Protective Factors: Suicide External Answers: Positive Therapeutic Protective Factors: Relationships Ranking of patient's Answers: Imminent suicidal risk: Ranking of patient's Answers: Low homicidal risk: TLC Evaluation - Wrap-up AXIS I Diagnosis (include DSM-V and ICD-10 codes), must also be entered in [employer], which is the source of truth. Notes: Bipolar I Disorder, with Psychotic Features 296.44 (F31.2) Evaluation End Date and 10/20/2018 11:00 PM Time (HH:LILIANA): Date Signed: 10/20/2018 10:36 PM Electronically Signed By:Javan Headley
--- NOTE | 2018-10-20 22:36 | ASMTTCLDSP ---
TLC Discharge Disposition Disposition: Answers: Admit Disposition Notes: Notes: In consultation with [facility] ED physician, Rudy Quiles MD and on-call psychiatrist, Viral Correa MD, both concurred that pt appears to meet 27-65 criteria requiring psychiatric hospitalization as pt appears to be at risk of harm to self due to a mental illness condition Was patient given the Answers: Yes Inpatient Behavioral Health Prohibited Belongings List while in the ED? For inpatient Viral Correa MD admission, the following psychiatrist agreed to accept patient for admission to Behavioral Health ([facility]): Type of Hold: Answers: M1/72-hour Hold Hold initiated by: Answers: Police Date Signed: 10/20/2018 10:36 PM Electronically Signed By:Javan Headley
[2018-10-21] MEDS ORDERED: OLANZapine 5 MG TAB PO PRN (01:17)
[2018-10-21] MEDS ORDERED: ACETAMINOPHEN 325 MG TAB PO PRN (01:18)
[2018-10-21] MEDS ORDERED: MAG HYDROX/AL HYDROX/SIMETH 30 ML UDCUP PO PRN (01:18)
[2018-10-21] MEDS ORDERED: MAGNESIUM HYDROXIDE 30 ML UDCUP PO PRN (01:18)
[2018-10-21] MEDS ORDERED: LORazepam 0.5 MG TAB PO PRN (01:18)
--- NOTE | 2018-10-21 09:13 | ASMTBHMTP ---
Master Treatment Plan Master Treatment Plan Answers: Mood Instability with for: Psychosis Date: 10/21/2018 Diagnosis on Admission: Bipolar I Disorder, with Psychotic Features 296.44 Expected length of stay: 3-5 Days Reason for admission: Notes: Per TLC Evaluation - Pt. 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 Pt. presented to the ED via EMS and police on a M1 hold. A professor notified campus police of a letter detailing a suicide plan and self report of voiced and delusional grandious thoughts. "I wanted you to see me cut myself so I can prove to you that I am in control of your mind. I grabbed an exacto knife from the lab drawer but you weren't there. You might have added a few days to my expected life expectancy by not being there. Thank you! I'm pathetic and a loser, but not insane. Sometime I hear things and see things, but I don't tell that to the doctors because they'll put me away. I was in the hospital 3 times so far, each of those because the doctors think I need "help!" Well, I don't need help. I perfect the way I am. You understand right?....the voices are just God's way of talking to me. He helps me better understand myself." Pt. stated int he letter that he had not refilled his prescription after he ran out of meds : " I was a slave this semester to the doctors, but I stopped taking the klonzepam and olanzapine because I ran out, and I've never been more sane. I also stopped the vraylar and I've never been more liberated!" Patient's stated presenting problems: Notes: Pt. stated he was "not entirely sure" how he got to the hospital. Pt. stated he had "occasionally suicidal thoughts", and told his professor who notified police. Patient's goals for treatment: Notes: "Haven't been regularly taking my medications". Patient's strengths: Notes: "Patient" Identify supports outside of hospital: Notes: Mother Discharge criteria: Notes: Patient will demonstrate more stable mood by discharge. Initial disposition plan/considerations: Notes: Pt. stated he is "being let go" from and will be flying home to [facility] on 10/31/18 Master Treatment Plan Required Signatures Psychiatrist signature: Answers: Viral Correa MD: RN on-shift signature: Answers: RN: Patient signature: Answers: Patient: Date Signed: 10/21/2018 09:12 AM Electronically Signed By:Shelia Tripp
--- NOTE | 2018-10-21 15:35 | BAPA ---
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 Patient presented to the ED via EMS after police placed him on an M- 1 hold. A professor notified campus police of a letter detailing a suicide plan and self-report of voices and delusional grandiose thoughts. A copy of the email that the patient sent to one of his professors, Dr. Natarajan, states, " I wanted you to see me cut myself so I can prove to you that I am in control of my own mind. I grabbed an X-Acto knife from the lab drawer, but you weren't there. You might have added a few days to my expected life expectancy by not being there. Thank you. I'm pathetic and a loser but not insane. Sometimes I hear things and see things, but I don't tell that to the doctors because they' ll put me away. I was in the hospital 3 times so far, each of these because the doctors think I need help. Well, I don't need help. I am perfect the way I am. You understand, right? The voices are just God's way of talking to me. He helps me better understand myself." Patient stated in the letter that he had run out of his medications and not refilled his prescriptions. He also stated, "I was a slave this semester to the doctors, but I stopped taking the clonazepam and olanzapine because I ran out, and I've never been more sane. I also stopped the Vraylar, and I've never been more liberated." When this MD met with the patient on the inpatient behavioral health services unit, he was calm, cooperative, pleasant. He was seated in a chair, dressed in street clothes. Made appropriate eye contact. He was linear and goal directed , alert and oriented x4. He told the MD that when he was discharged from [address] [place] [address] in March of 2018, he took a leave of absence from school; went back home to [facility], where he stayed from April until June. He says he saw a psychiatrist in [facility] who changed his medications, took him off Lamictal; and at the time he was taking Rexulti, lithium and that was it. He said when he came back in June to see you, Dr. Mike switched him from Rexulti to Vraylar, but he does not remember why, and kept him on lithium, and the patient states that several weeks ago Dr. Mike added low-dose olanzapine 5 mg daily to treat what the patient described as "my hypomania." Patient also told MD that Vraylar is not approved in [facility] and is not available, so when he goes back to [facility], which he will be doing on October 28, he will not have access to Vraylar. Otherwise, patient denied feeling depressed, sad, anxious, helpless, hopeless, or worthless. He denied anxiety and panic attacks. He denied any psychotic symptoms. He denied auditory and visual hallucinations. He denied paranoid delusions. There was no evidence of the patient responding to internal or external stimuli. He also did not exhibit any manic symptoms. He did not have increased goal-directed activity, decreased need for sleep, racing thoughts, pressured speech, grandiose delusions, or elevated and elated mood. Patient denied currently having any thoughts, plans, or intents to hurt himself or anyone else. He stated that he was willing to get back on his medication. He stated that he had been taking lithium but had missed a couple of days. However , his lithium level in the ED was 0.2, which is basically undetected, which indicates that the patient had not been taking lithium for longer than he says. PAST PSYCHIATRIC HISTORY: The patient has a history of 3 psychiatric hospitalizations. Two of those were on [address] [place] [address], and one of those was in [place]. He was on the inpatient unit March 08 through March 13, 2017, and he was also on [address] [place] [address] from November 28 to December 01, 2016. When he was discharged from [address] [place] [address] in March of 2017, he was taking lithium 300 mg p.o. q.a.m., 600 mg p.o. q.h.s.; Zyprexa 10 mg p.o. q.h.s.; Lamictal 200 mg daily; and Rexulti 3 mg p.o. q.h.s. Patient has 1 prior suicide attempt in 2017. He took an overdose of medications. He was followed by an outpatient psychiatrist in [facility] in the summer of 2016. Since he has returned to see you in the fall of 2016, he has been under the care of Dr. Sreedhar Mike at [facility]. ALLERGIES: The patient has no known drug allergies. CURRENT MEDICATIONS: The patient is currently prescribed propranolol unknown dose; lithium 300 mg p.o. q.a.m., 600 mg p.o. q.h.s.; Vraylar unknown dose; and olanzapine 5 mg p.o. q.h.s. p.r.n. Pharmacy was not able to do a med reconciliation because the patient gets his meds at the [facility] pharmacy and they are not open on the weekends. LABS: Done in the [facility] ED. White cell count was 7.86, hemoglobin 17.1, hematocrit 49.0, platelet count 249. Sodium 140, potassium 4.0, chloride 106, BUN 16, creatinine 1.1, glucose 101, calcium 9.9. A urine drug screen was negative for all drugs of abuse. Salicylate and acetaminophen levels were both undetected. Ethyl alcohol was undetected, and lithium level was 0.2. PAST MEDICAL HISTORY: The patient has a past surgical history significant for an appendectomy when he was 20. No other chronic medical conditions reported. SOCIAL HISTORY: Patient is unmarried with no children. He lives in graduate housing with his mother. 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 He was originally admitted into the PhD program, but due to his mental illness and 2 hospitalizations in 2016, he decided to go for a terminal master's degree. Dr. Sreedhar Mike, his outpatient psychiatrist, wrote a letter on 10/17/2018, asking for academic accommodations this semester. He noted in his letter "that the patient has struggled over the course of graduate school due to this illness and has abandoned his interest in obtaining his PhD with hopes to return to [facility] with his master's in chemistry." Dr. Mike noted that over the last several weeks the patient has "fallen into a depressive phase; is struggling with depressed mood, anhedonia, amotivation and avolition and hypersomnia." Dr. Mike noted, "I understand he has a potential job lined up in [place] that requires his master's and hope he will be able to accept this job and find more stability there under the ongoing care of his psychiatrist as I believe Kristopher has great potential with help of ongoing medication treatment. Please accept this letter as a request for lenience due to this student's current medical condition." Patient has a younger brother who is in school in [place]. His parents are . His mother is currently living with the patient here in the [facility]. His father is back home in [facility]. FAMILY HISTORY: Patient's maternal grandmother and possibly his mother both have suffered from depression at different times in their life but have never sought treatment. There is no other family history of mental illness or substance use. SUBSTANCE USE HISTORY: Patient states that he seldom drinks, says that he maybe has 1-2 drinks every 2-3 months. He denies any use of marijuana and denies use of any other illicit or recreational drugs. TRAUMA HISTORY: Patient denies a history of trauma. LEGAL HISTORY: No current legal issues reported. MENTAL STATUS EXAMINATION: This is a tall, well-developed, appropriately groomed [place] man sitting in a chair wearing jeans, a T-shirt, and a down vest. He is alert and oriented x4. His affect is flat, constricted. His demeanor is appropriate. He makes good eye contact. Speech rate is slow, and volume is low. His intellectual function appears to be above average based upon his vocabulary, fund of knowledge, and educational history. He denies feeling sad, helpless, hopeless, worthless, and anxious. He denies any symptoms of psychosis, including denying auditory and visual hallucinations, paranoid delusions, ideas of reference. There are no signs or symptoms of katlin. He does not have increased goal-directed activity, decreased need for sleep, racing thoughts, pressured speech, grandiose delusions, or elated and/or elevated mood. He also denies any plans, thoughts, or intents to hurt himself or anyone else. His thought process is linear and goal directed. His insight and judgment are both impaired as evidenced by his recent decision to stop taking medications without consulting his outpatient providers. IMPRESSION: 1. Bipolar disorder, type I, most recent episode depressed with psychotic features. 2. Lack of social support. 3. Difficulty in interpersonal relationships. 4. Academic difficulties. 5. Most of his family is in [place]. 6. Noncompliance with medication. PLAN: 1. Admit to the inpatient behavioral health services unit on [address] on an M-1 hold. 2. Monitor closely for safety. The patient is not currently exhibiting any signs of unsafe behavior. He did make statements in the letter he wrote to Dr. Natarajan that he was planning to cut himself with an X-Acto knife. The patient is currently denying any thoughts, plans, or intents to hurt himself or anyone else. He said that he only wanted to cut himself to prove to Dr. Natarajan that he could control his body with his mind but was not interested in harming himself. 3. We will continue to monitor and observe the patient. Patient is currently denying any acute psychotic symptoms. He has endorsed auditory and command auditory hallucinations in the past but says he is not experiencing any of those since he was admitted. He does not show any signs of responding to internal or external stimuli. 4. The patient recently stopped taking all of his medications. He initially reported that he had been compliant with lithium, but his blood level was virtually undetected when it was checked in the ED, which indicates that the patient has not been compliant with this medication. We will restart the lithium at a starting dose of 300 mg p.o. b.i.d. The patient has taken this medication for several years with good effect. He does give informed consent to restart this medication here in the hospital. The patient states that he has also taken olanzapine in the past. More recently, he has been on Rexulti and Vraylar, but he does not believe that either of those medications will be available to him when he returns home to [facility] on October 31. Therefore, this MD does not see any point in starting either of those medications. Olanzapine is available, and he can take that in [place]. He has been on that in the past with good effect. We will start him at 10 mg p.o. q.h.s. Patient does ask if he can be restarted on Abilify as this medication has also been helpful for him in the past. MD stated that prescribing 2 antipsychotic medications has not been shown to be effective and increases the risk for side effects and potential adverse effects. 5. Patient has signed an EDGAR to obtain medical records from [facility]. MD has requested the treatment team contact Dr. Sreedhar Mike, who has been treating this patient for the last 2 years. He knows the patient better than anyone, has been adjusting his medications recently. Would like to get his input to decide on the best possible pharmacological treatment for the patient going forward. 6. Estimated length of stay is 3-5 days. The patient states that he has a followup appointment with Dr. Sreedhar Mike on 10/24 at 1600. He also has a plane ticket to go to [place] on 10/28, where his aunt lives; and then, finally, he has a plane ticket to go from [place] to [facility], on October 31. He states that he has a psychiatrist whom he saw in the summer of 2016 in [facility], and he plans to continue getting treatment from that provider. /[id number]/MODL MTDD
[2018-10-21] MEDS: OLANZapine DISINTEGR 10 MG TAB PO SCH (20:31)
[2018-10-21] MEDS ORDERED: LITHIUM CARBONATE ER 300 MG TAB PO SCH (21:00)
--- NOTE | 2018-10-22 08:48 | SOAPPROG ---
SOAP Progress Note Assessment/Plan: Assessment: Schizoaffective disorder, bipolar type complicated by medication non-adherence prior to admission. Slight improvement noted (see subjective/objective note). Patient could benefit from continued inpatient hospitalization for crisis stabilization, safety, and medication evaluation. Plan: 1. Psychotropic medications: After reviewing options, risks, and benefits patient agrees to continue current medications, and requests and agrees to change Lithobid 300 mg po BID to Eskalith Cr 450 mg po BID. Plan is to continue to observe patient for response and side effects from medications, and ongoing monitoring and evaluation. 2. Review with patient informed consent and recommendations for psychotropic medication treatment listed below 3. Labs: A1c, lipid panel, liver function 4. Therapy: continue milieu and group therapy 5. Further investigation including gathering information from patients relatives and review of past case records to inform treatment plan. 6. Safety/Wellness plan and follow-up outpatient appointments to be established prior to discharge. Next steps are for patient to meet with acute care nurse to plan a safe discharge plan and establish outpatient services for ongoing treatment. 7. Confer with inpatient treatment team regarding treatment plan. 8. Psychosocial stressors addressed through patient case manager 9. Legal status: M1; sign in voluntary when M1 expires 10. Consider discharge on Monday if patient is in stable condition, safe, and has a safe discharge plan. PSYCHOTROPIC MEDICATION TREATMENT INFORMED CONSENT and RECOMMENDATIONS: Review nature of condition, diagnosis, and prognosis. Review nature and purpose of psychotropic medication treatment. Review type of psychotropic medications being ordered. Review risk and benefits of psychotropic medication treatment. Review probable length of time patient will need to take medications. Review risk and benefits of not undergoing psychotropic medication treatment. Review alternative treatments to psychotropic medications. Review psychotropic medications contraindications, drug-drug interactions, side effects, and importance of reporting any side effects to a psychiatric provider or nurse during inpatient hospitalization, and upon discharge to patients psychiatric outpatient provider, primary care provider, or other health child care lead teacher. Review importance of asking a nurse, psychiatric provider, or primary care provider any questions or problems concerning the psychotropic medications. Verify patient understands the information that has been provided, and understands, accepts, and agrees to psychotropic medications. Review patients safety plan and importance of patient to report to staff while hospitalized if patient is ever a danger to self/others, or unable to care for self, and upon discharge, the importance for patient to contact [facility] or [facility], or go to the nearest emergency room, if patient is ever a danger to self/others, or unable to care for self. Recommend that upon discharge patient establish medication management treatment with a psychiatric provider, establishes routine therapy appointments, and follow-up with primary care provider. Verify patient understands and agrees to these recommendations. 10/22/18 08:48 Subjective: Following up with patient for evaluation of psychosis and safety. Patient reports, "Feeling better, the Zyprexa is working well." Patient expresses the following psychiatric symptoms none. Patient reports taking medications as prescribed, and describes response to medications as good. Patient does not report undesirable side effects from the medications. Patient reports lithium as Eskalith Cr 450 mg po BID, and requests to change from Lithobid to Eskalith Cr. Patient reports taking Eskalith 450 mg po BID for about one month, and reports tolerated and responded well. Patient describes getting 8 hours of sleep, and reports feeling rested today. Patient reports plan to return to , wrap up classes, appointment with Dr. Mike on Monday at 4pm, then leave for [facility] on 10/28/18. Objective: Vital Signs Temp Pulse Resp BP Pulse Ox 36.5 C 79 14 132/81 H 96 10/22/18 06:00 10/22/18 06:00 10/22/18 06:00 10/22/18 06:00 10/22/18 06:00 NURSING REPORT: Consulted with nursing for update on patients progress in treatment. Nurses report patient is engaged in treatment, is attending groups, slept 8 hours, expresses the following psychiatric symptoms: none, exhibits the following psychiatric symptoms: withdrawn, flat affect; is eating all meals, is agreeable to medications and taking as prescribed with no report of side effects , with no s/s of EPS/akathisia, and denies SI/HI, denies A/V hallucinations, and denies delusions. MSE: The patient is a well-nourished male looking stated chronological age. Attire is appropriate dress is casual. Grooming status is appropriate. Ambulation is independent. Gait is normal and coordinated. Posture is normal and relaxed. Eye contact is appropriate. Motor activity is appropriate with purposeful, organized, coordinated movements; with no involuntary movements. Attitude is cooperative. Patient appears attentive and relates well to this interviewer. Language production is spontaneous. R/R/V normal. Patient reports mood as good with congruent affect. Patients thought process linear and logical, with no signs of thought disorder. Patient does not report suicidal/homicidal thoughts, ideas, or plans. Patient denies auditory, visual hallucinations. Patient does not report delusions. Patient does not appear to be attending to internal stimuli. Patients attention and concentration are adequate. Patient is oriented to person, place, time, and situation. Patients insight is fair. Patients judgment is fair. - Time Spent With Patient Time Spent With Patient: 15 minutes, met with patient individually. - Pending Discharge Pending Discharge Within 24 Hours: No Pending Discharge Within 48 Hours: No ICD10 Worksheet Patient Problems: Problems Problem Status Onset Acute psychosis Acute Schizoaffective disorder, bipolar type Chronic Bipolar disease, manic Acute Overdose Acute Suicidal ideation Acute
[2018-10-22] MEDS: LITHIUM CARBONATE ER 450 MG TAB PO SCH ×2 (09:02→20:33)
--- NOTE | 2018-10-22 14:21 | ASMTCMCOM ---
CM Note CM Note Notes: Pt and CC completed MTP, signed and placed in chart. Pt. reports he stopped taking his medication 2-3 weeks ago because the prescriptions "ran out". Pt. stated the vraylar was "making my soul heavy", adding it is not an approved medication in [place]. Pt. stated he is "being let go" from . Pt. stated he has had a termination session with his therapist already, adding he has a session with Dr. Mike on Monday at 4:00pm. Pt. stated he was told his insurance would not cover his stay in the hospital. Pt. requested CC double check if this was true. Pt. denied all substance use, including alcohol and THC. Pt. reports "occasionally hearing voices" adding they are command and reports not having them while meeting with CC. Pt. stated he is flying to [place] on 10/28/18 to stay with family for a few days,amd will then fly to [facility] on 10/31/18. Pt. stated his mother will be on these flights with him. Pt. stated his mother is "Congregational" and did not always agree with pt's psychiatrist when in [facility]. Pt. stated his mother changed his psychiatrist three times while in [facility] and pt. was on different medications with each psychiatrist Pt. stated he was in the hospital for three weeks while in [facility]. Pt. stated he was on Abilify while in [facility] and is interested in going back on it. Pt. requested to discharge by Monday, stating he would like to tie up some loose ends at school. Pt. stated he is having trouble coming up with words, while speak with CC, due to his racing thoughts. Pt. presents as alert, rigid, lacking eye contact, possibly thought blocking, and cooperative. Staff report pt. sleeping 4.5 hours and requesting PRNs as needed. Date Signed: 10/21/2018 02:16 PM Electronically Signed By:Shelia Tripp
--- NOTE | 2018-10-22 14:23 | ASMTCMCOM ---
CM Note CM Note Notes: Pt. reports feeling "okay". Pt. stated he slept "fairly well" adding it was "good sleep". Pt. reports eating well and attending groups. Pt. reports no issues with his current medications. Pt. stated he was "let go" by his professor, not [employer]. Pt. stated he is suppose to graduate this semester but due to being in the hospital he has missed one final. Pt. provided student services information. Pt. stated he is hoping to discharge on Monday, to be able to complete tasks at school before traveling back to [place]. Pt. stated the semester is done on 10/24/18. Pt. denied SI, HI, AVH and paranoia. Pt. attended treatment team meeting and stated he was havung "dangerous thought" adding they has since gone away. Pt. stated [place] and Zyprexa have been helpful. Pt. presents as alert, calm, speaking easily, fair eye contact, and cooperative. Staff report pt. sleeping 8.5 hours and being medication compliant. Date Signed: 10/22/2018 11:35 AM Electronically Signed By:Shelia Tripp
--- NOTE | 2018-10-22 18:41 | BCON ---
INTERNAL MEDICINE CONSULTATION. DATE OF CONSULTATION: 10/22/2018 REFERRING PHYSICIAN: Viral Correa MD REASON FOR REFERRAL: Medical clearance for inpatient behavioral health stay. HISTORY OF PRESENT ILLNESS: This patient was brought to the emergency department by [facility]. He had written an e-mail to a professor in which he was considering self-harm. He was evaluated by the mental health team and admitted for further psychiatric care. He is currently without any acute complaints. PAST MEDICAL HISTORY: 1. Appendicitis. 2. Psychiatric diagnoses of bipolar disorder versus schizoaffective disorder, bipolar type. 3. Hepatitis, likely due to fatty liver. PAST SURGICAL HISTORY: He has had an appendectomy. MEDICATIONS: Prior to admission he had been noncompliant with psychiatric medications. He was prescribed: 1. [place] 300 mg in the morning and 600 mg in the evening. 2. Brexpiprazole 3 mg p.o. at bedtime. 3. Olanzapine 10 mg p.o. at bedtime. 4. Lamotrigine 200 mg p.o. daily. ALLERGIES: There are no known drug allergies. 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 He is a nonsmoker, nondrinker. He is originally from [place]. FAMILY HISTORY: Noncontributory. REVIEW OF SYSTEMS: He has had approximately a 10 pound weight gain since November of this year when he was weighed at 104 kg and on his current admission he has been weighed at 108.9 kg. He is not in pain. He denies cough or dyspnea. He denies fevers or chills. He denies nausea, vomiting, constipation , or diarrhea. He denies urinary frequency or dysuria. Otherwise, a 10-point review of systems is negative. He reports he does not have time to exercise due to his schedule as a bilingual student tutor. PHYSICAL EXAM: VITAL SIGNS: Blood pressure is 132/81. When he initially presented in the emergency department it was 158/106, heart rate is 79, respiratory rate is 14, oxygen saturation is 96% on room air, temperature is 36.5 degrees centigrade. GENERAL: This is a well-nourished, well-developed, obese appearing man, appears chronologic age. Cooperative and in no acute distress. HEENT: Extraocular movements are intact. Pupils are equal, round, reactive to light. Mucous membrane moist, dentition is in good condition. He has an uncrowded airway, Mallampati class 2. NECK: Supple. HEART: Regular rate and rhythm with no murmurs, rubs, or gallops. LUNGS: Clear to auscultation bilaterally. ABDOMEN : Benign. EXTREMITIES: There is no cyanosis, clubbing, or edema. NEUROLOGIC : He is alert and oriented x3. Cranial nerves 2-12 are grossly intact. There is no focal weakness. Sensation is intact to light touch and gait is within normal limits. LABORATORY STUDIES: From the emergency department, CBC was entirely within normal limits. Serum chemistry revealed normal renal function and electrolytes. Hemoglobin A1c was 5.7. The liver functions revealed mildly elevated AST and ALT at 83 and 144, and triglycerides were markedly elevated at 623 and cholesterol was high at 216 and his HDL was low at 35. TSH was slightly elevated at 5.39. Toxicology screen in the serum was negative for salicylates, acetaminophen or ethyl alcohol. [place] level was low at 0.2, and urine toxicology screen was negative for any substances of abuse. ASSESSMENT/RECOMMENDATIONS: 1. Mental health issues pending further evaluation and management per Psychiatry and the mental health team. 2. Obesity with considerable weight gain over the past year. He is experiencing complications of obesity including hepatic inflammation consistent with steatohepatitis, prediabetes, elevated blood pressure and dyslipidemia. It is very much in his interest to lose weight. Advise physical exercise. He would benefit from consultation with dietitian. Consider avoiding medications which would cause further weight gain, though his psychosocial stabilization takes priority at present. 3. Hepatic inflammation with likely history of steatohepatitis. He should be referred to a logger all round for further management. If he has not had it already, he should have vaccination for hepatitis A and hepatitis B. If he develops rudy diabetes, he would benefit from treatment with metformin. I will add on hepatitis serology to rule out viral hepatitis as a contributing etiology. 4. Dyslipidemia. Given his age, it is unlikely that he would meet criteria for a statin medication and it is unclear whether a statin would be helpful in the setting of steatohepatitis. Encourage dietary compliance and exercise for weight loss. I see no medical contraindications to this patient's continued stay on the inpatient behavioral health unit or to any psychiatric medications or procedures. Thank you very much for including me in the care of this patient and please do not hesitate to contact me or the hospitalist service should there be need for further medical evaluation. /[id number]/MODL [email or web address]
[2018-10-22] MEDS: OLANZapine DISINTEGR 10 MG TAB PO SCH (20:33)
[2018-10-23 00:17] LABS: HEPATITIS A ANTIBODY IGM (BCH) NEGATIVE (NEGATIVE); HEPATITIS B CORE AB IGM NEGATIVE (NEGATIVE); HEPATITIS B SURFACE ANTIGEN NEGATIVE (NEGATIVE); HEPATITIS C ANTIBODY TOTAL NEGATIVE (NEGATIVE)
[2018-10-23 07:01] VITALS: BP 123/73
--- NOTE | 2018-10-23 07:48 | ASMTBHDC ---
Notes Note: Notes: CC confirmed client's discharge follow up Follow up with: Joao Wharncliffe: [facility], [id number] [facility] [place], [place] [address] Next Appt: Today October 23 (10/23/18) at 11:15am at [facility] Next Appointment Medication - Wednesday October 24, 2018 (10/24/18) at 4:00pm with Dr. Mike Date Signed: 10/23/2018 07:48 AM Electronically Signed By:Padilla Duggna
[2018-10-23] MEDS: LITHIUM CARBONATE ER 450 MG TAB PO SCH (08:38)
--- NOTE | 2018-10-23 09:41 | BDS ---
REASON FOR ADMISSION: From the ED note dated 10/20/2018, patient presented to the ER via [facility] ([place], [place]) police. Patient reported not taking his prescription medications for over 2 weeks. Patient had reported wanting to harm himself to professors. Patient reported a plan to cut himself with an X- [employer] knife from a lab. The patient was admitted involuntarily on an M1 hold due to being a danger to himself. Patient was admitted for safety, crisis stabilization, and medication management. ADMITTING DIAGNOSES: Schizoaffective disorder, bipolar type. ADMISSION PHYSICAL EXAM: The patient was seen for an Internal Medicine consultation on 10/22/2018, for medical clearance for inpatient psychiatric hospitalization and treatment. Patient was medically cleared for inpatient psychiatric hospitalization and treatment. For further details, please refer to consultation note dated 10/22/2018. ADMISSION LABS: 1. CBC from 10/20/2018, within normal limits. 2. BMP from 10/20/2018, within normal limits, except glucose was elevated at 108. 3. Hemoglobin A1c from 10/20/2018, within normal limits at 5.7. 4. Liver function from 10/20/2018, within normal limits, except AST is elevated at 83, and ALT is elevated at 144. Total protein elevated at 8.3. 5. Lipid panel from 10/20/2018, within normal limits, except triglycerides were elevated at 623. Cholesterol was elevated at 219, and cholesterol risk factor was elevated at 1.6. Non-HDL cholesterol was elevated at 184. HDL cholesterol was low at 35. Cholesterol/HDL ratio was elevated at 6.26. Elevated lipids addressed with patient by hospitalist. 6. TSH from 10/20/2018, elevated at 5.390. 7. Toxicology screen from 10/20/2018, negative for all substances tested and negative for ethyl alcohol. 8. [place] level from 10/20/2018, was low at 0.2. 9. Hep panel from 10/22/2018, was negative for hepatitis A IgM AB, negative for hepatitis B antigen, negative for hepatitis B core IgM AB, and negative for hepatitis C antibody. MAJOR PROCEDURES OR TESTS: None. HOSPITAL COURSE: The most prominent symptoms and behaviors while the patient was here were patient reports of racing thoughts, pressured speech. Patient appeared anxious. Treatment modalities utilized were milieu and group therapy. [place] ER 450 mg p.o. b.i.d. was continued to target mood symptoms, was tolerated with no report of side effects and with good response. Zyprexa Zydis 10 mg p.o. q.h.s. was started to target mood symptoms, was tolerated with no report of side effects and with good response. Patient has improved considerably, with no signs of psychiatric symptoms and no psychiatric symptoms expressed at time of discharge. The patient reports he has improved since admission, states to be in stable condition, feels safe to discharge, and he contracts for safety. Patient's response to treatment was good. There were no adverse or unexpected results of treatment. The patient was safe throughout his stay, active in treatment, engaged in groups, and was appropriate with staff and other patients. The patient met with the treatment team prior to discharge to assess readiness to discharge and review discharge plan. The treatment team consensus is the patient is in stable condition, has a safe discharge plan, and is ready to discharge today. CONDITION ON DISCHARGE: Patient is in stable condition and is no longer a danger to self or others, and is not gravely disabled due to mental illness. Patient is no longer in need of inpatient level of care, and can be safely and effectively treated within the community. The patients level of risk at time of discharge is low. MSE: The patient is casually dressed and with good hygiene , and looks stated age. Patient is sitting, posture is upright, and position is relaxed. Patient appears awake, alert, and responds appropriately and reasonably during interview. Patient is engaged, relates well to interviewer, and emotional facial expression is appropriate to situation and changes appropriately with topic. Patient is cooperative, makes comfortable eye contact , and movements are voluntary, deliberate, coordinated, and smooth and even with no inappropriate movements. Patient makes laryngeal sounds effortlessly and shares conversation appropriately; pace of conversation is appropriate, and stream of talking is fluent; articulation is clear and understandable; word choice is effortless and appropriate for education level; completes sentences, occasionally pausing to think; rate and volume are appropriate for interview and setting. Patient reports mood as euthymic. Patients affect is stable with full variable range, congruent with mood, and appropriate to speech and circumstances. Patient has linear and logical thinking, with no loose associations, tangential thought, thought blocking, concrete thinking, or any other signs of formal thought disorder. Patient denies suicidal and homicidal ideation, and denies hallucinations and delusions. Patient appears to be a reliable historian with sound judgement and good insight into current condition. Patient has no apparent dysfunction in recent or remote memory noted , and no evidence of gross cognitive dysfunction noted at any point during the interview. DISCHARGE DIAGNOSIS: Schizoaffective disorder, bipolar type. CURRENT MEDICATIONS: After reviewing options, risks and benefits with the patient, the patient agrees to continue: 1. [place] Eskalith CR 450 mg p.o. b.i.d. 2. Zyprexa 10 mg p.o. q.h.s. Patient requests prescription for Zyprexa at time of discharge. Patient reports he currently has a prescription at home for lithium. Prescription for 30 days for Zyprexa is provided at time of discharge. The prescription is reviewed with the patient at time of discharge to ensure accuracy and patient understanding. DISPOSITION: Patient left hospital independently and voluntarily, plans to return to his home in [place], and plans to attend an appointment with Case Management today at 11:15 at [facility]. FOLLOWUP: ambulatory care coordinator reports the appropriate outpatient follow-up services have been established and outpatient appointments have been scheduled. The patient received written instructions with times and dates of outpatient follow-up appointments. The following follow-up recommendations were provided to the patient at discharge: Continue psychotropic medications as prescribed and attend appointments as scheduled. Report any side effects to a psychiatric outpatient provider, a primary care provider, or other health care rep. Address any questions or problems concerning the psychotropic medications with a psychiatric outpatient provider, a primary care provider, or other health care rep. Contact [facility] or [facility], or go to the nearest emergency room, if you are ever a danger to yourself/others, or unable to care for yourself. As soon as possible, establish a routine medication management treatment with a psychiatric provider, establish routine therapy appointments, and follow-up with a primary care provider. LEGAL COURSE: The patient was admitted on an M1 hold for involuntary psychiatric hospitalization. Patient discharged today independently and voluntarily. ATTITUDE AT TIME OF DISCHARGE: The patients attitude was positive at time of discharge, and patient reports looking forward to discharging today. The patient reports he feels safe to discharge, is no longer a danger to himself or others, is in stable condition, and contracts for safety. Patient states he will continue medications as prescribed, and establish medication management treatment with an outpatient provider after discharge. Patient reports he understands the information that has been provided to him, and he understands, accepts, and agrees to psychotropic medications. Patient describes internal protective factors as the coping skills he has learned while hospitalized here, and he plans to continue to practice these coping skills after discharge. LABS AND STUDIES: There were no pending labs or studies at time of discharge. ADVANCE DIRECTIVES: There were no advance directives on file, and patient was full code during this hospitalization. The following psychotropic medication treatment informed consent and recommendations were provided to the patient at time of discharge. Patient reports he understands, accepts, and agrees to the information that has been provided. PSYCHOTROPIC MEDICATION TREATMENT INFORMED CONSENT and RECOMMENDATIONS: Review nature of condition, diagnosis, and prognosis. Review nature and purpose of psychotropic medication treatment. Review type of psychotropic medications being prescribed. Review risk and benefits of psychotropic medication treatment. Review probable length of time will need to take medications. Review risk and benefits of not undergoing psychotropic medication treatment. Review alternative treatments to psychotropic medications. Review psychotropic medications contraindications, side effects, and importance of reporting any side effects to a psychiatric provider, primary care provider, or other health care rep. Review importance of asking a psychiatric provider or primary care provider any questions or problems concerning the psychotropic medications. Review safety plan and the importance to contact [facility] or [facility] , or go to the nearest emergency room, if ever a danger to yourself/others, or unable to care for yourself. Recommend upon discharge to establish routine medication management treatment with a psychiatric provider, establish routine therapy appointments, and follow-up with a primary care provider. Verify patient understands, accepts, and agrees to the information that has been provided. /[id number]/MODL MTDD
== END 2018-10-23 09:15 | disposition home or self-care (01) | DRG 885 ==
LOC: BBEH 10-21 01:00
PROVIDERS: ADMIT Psychiatry & Neurology Psychiatry; ATTEND Psychiatry & Neurology Psychiatry
DX: F25.0 Schizoaffective disorder, bipolar type (principal); R45.851 Suicidal ideations; Z91.14 Patient's other noncompliance with medication regimen
CPT/HCPCS: 80305; G0008; G0472; G0480